=== PATIENT | female | born 1945 | race Caucasian/White ===

== ENCOUNTER → 2016-08-25 | Outpatient (CLI) | payer OTHER ==
[~2016-08-25] MED LIST: ATV5 PO; CALCTAB5 PO; CLRD24 PO; EZET10TA41 PO; GABA-113 PO; GLC500 PO; OXYC1TAB3 PO; PRLSR20 PO; RANI300T2 PO
[2016-08-25 10:43] LABS: BLOOD UREA NITROGEN 19 mg/dl (7-18); BUN/CREATININE RATIO 12.9 (10-20)
--- NOTE | 2016-08-25 11:18 | DIAGNOSTIC IMAGING REPORT ---
CT ABD WITH IV CONTRAST ONLY (CT) CT DOSE: 645.64 mGycm CLINICAL HISTORY: Adenopathy TECHNIQUE: The patient was scanned in a dynamic helical fashion during intravenous administration of 94 cc Optiray 320. COMPARISON STUDY: January 20, 2016 FINDINGS: There are mild basilar atelectatic changes. No focal hepatic masses are visualized. The liver is slightly nodular in appearance raises the possibility of cirrhosis. The gallbladder surgically absent. The spleen enhances somewhat heterogeneously. The spleen is within normal limits in size. There is fatty atrophy of the pancreas. There is stable mild left adrenal gland thickening. There is marked right renal atrophy. No left renal masses are visualized. As no hydronephrosis. There is no evidence of abdominal aortic dilatation. There are mildly prominent lymph nodes in the region of the efrain hepatis, and gastrohepatic ligament. There are also minimally prominent left-sided Para-aortic lymph nodes. These remain unchanged when compared the preceding study. IMPRESSION: 1. No significant change in the borderline enlarged upper abdominal lymph nodes 2. Marked right renal atrophy 3. Nodular serosal surface of the liver raising the possibility of cirrhosis 4. Fatty atrophy of the pancreas Electronically signed by: Lei Alejandra M.D. 08/25/2016 11:17 AM Dictated Date/Time: 08/25/2016 11:11 AM
== END | disposition home or self-care (01) ==
LOC: C.CTS 09:40
PROVIDERS: ATTEND Nurse Practitioner Family
DX: R59.9 Enlarged lymph nodes, unspecified (principal); Q60.0 Renal agenesis, unilateral; N26.1 Atrophy of kidney (terminal); K86.89 Other specified diseases of pancreas

== ENCOUNTER → 2017-12-06 | Outpatient (CLI) | payer OTHER ==
[~2017-12-06] MED LIST changes: +OXYC-90 PO; -OXYC1TAB3 PO
[2017-12-06 16:40] LABS: HEMOGLOBIN 12.7 g/dL (12.0-16.0); MEAN CORPUSCULAR HEMOGLOBIN 30.6 pg (25-34); MEAN CORPUSCULAR HGB CONC 32.6 g/dl (32-36); PLATELET COUNT 254 K/uL (130-400); RED CELL DISTRIBUTION WIDTH CV 13.3 % (11.5-14.5); RED CELL DISTRIBUTION WIDTH SD 45.8 fL (36.4-46.3); WHITE BLOOD COUNT 9.56 K/uL (4.8-10.8)
[2017-12-06 17:00] LABS: ALBUMIN 3.8 gm/dl (3.4-5.0); BLOOD UREA NITROGEN 26 mg/dl (7-18); CALCIUM 8.9 mg/dl (8.5-10.1); CARBON DIOXIDE 23 mmol/L (21-32); CREATININE 1.55 mg/dl (0.60-1.20); GLUCOSE 266 mg/dl (70-99); PHOSPHORUS 3.7 mg/dl (2.5-4.9); POTASSIUM 4.6 mmol/L (3.5-5.1); SODIUM 138 mmol/L (136-145)
== END | disposition home or self-care (01) ==
LOC: C.LAB1850 15:43
PROVIDERS: ATTEND Internal Medicine Nephrology
DX: N17.9 Acute kidney failure, unspecified (principal)

== ENCOUNTER 2018-08-12 16:06 | Inpatient (IN) ==
[2018-08-12] MEDS ORDERED: fentaNYL citrate 100 MCG/2 ML VIAL IV STA ×3 (16:20→19:05)
[2018-08-12 17:01] LABS: Basophils # (auto) 0.06 K/uL (0-0.2); Basophils % (auto) 0.5 %; Eosinophils # (auto) 0.28 K/uL (0-0.5); Eosinophils % (auto) 2.4 %; Hematocrit (blood only) 38.2 % (37-47); Hemoglobin 12.5 g/dL (12.0-16.0); Immature Granulocytes # (auto) 0.06 K/uL (0.00-0.02); Immature Granulocytes % (auto) 0.5 %; Lymphocytes # (auto) 1.73 K/uL (1.2-3.4); Mean Corpuscular Hgb Conc 32.7 g/dL (32-36); Mean Corpuscular Volume 94.6 fL (80-100); Mean Platelet Volume 10.9 fL (7.4-10.4); Monocytes # (auto) 0.85 K/uL (0.11-0.59); Monocytes % (auto) 7.3 %; Neutrophils # (auto) 8.59 K/uL (1.4-6.5); Neutrophils % (auto) 74.3 %; Platelet Count 266 K/uL (130-400); RDW Standard Deviation 45.3 fL (36.4-46.3); Red Blood Count 4.04 M/uL (4.2-5.4); White Blood Count 11.57 K/uL (4.8-10.8)
[2018-08-12 17:18] LABS: Appearance Urine Clear (Clear); Bacteria Urine Automated 4+ (Negative); Bilirubin Urine Negative (Negative); Blood Urine Negative (Negative); Color Urine Yellow; Glucose Urine UA 3+ (Negative); Ketones Urine Negative (Negative); Leukocyte Esterase Urine Negative (Negative); Nitrite Urine Positive (Negative); Protein Urine Negative (Negative); RBC Urine Automated 0-4 /hpf (0-4); Urobilinogen Urine Negative (Negative); pH Urine 6.5 (4.5-7.5)
[2018-08-12 17:22] LABS: Partial Thromboplastin Ratio 0.9; Partial Thromboplastin Time 24.3 Seconds (21.0-31.0); Prothrombin Time 9.8 Seconds (9.0-12.0)
[2018-08-12 17:51] LABS: BUN Creatinine Ratio 15.5 (10-20); Blood Urea Nitrogen 26 mg/dl (7-18); Calcium 9.5 mg/dl (8.5-10.1); Carbon Dioxide 21 mmol/L (21-32); Chloride 105 mmol/L (98-107); Creatinine Clr Calc Pharmacy 30.3 ml/min; Est GFR (African American) 34.6; Est GFR (Non-African American) 29.8; Glucose 405 mg/dl (70-99); Potassium 5.3 mmol/L (3.5-5.1); Sodium 136 mmol/L (136-145); Troponin I < 0.015 ng/ml (0-0.045)
--- NOTE | 2018-08-12 17:58 | CT Scan Report ---
CT head/brain wo con CLINICAL HISTORY: Head pain status post trauma COMPARISON STUDY: No previous studies for comparison. TECHNIQUE: Axial CT of the brain is performed from the vertex to the skull base. IV contrast was not administered for this examination. A dose lowering technique was utilized adhering to the principles of ALARA. CT DOSE: FINDINGS: No intra or extra-axial mass lesions are visualized. There is no CT evidence of acute cortical infarc tion. There is no evidence of midline shift. There is no acute hemorrhage. No calvarial fractures ar e visualized. There are patchy white matter hypodensities likely on a small vessel basis. There is no evidence of pathologic ventricular dilatation. There is no evidence of acute sinusitis. There is calvarial hyperostosis. IMPRESSION: No acute intracranial findings Electronically signed by: Lei Alejandra M.D. 08/12/2018 5:57 PM
--- NOTE | 2018-08-12 18:00 | CT Scan Report ---
CT OF THE CERVICAL SPINE CLINICAL HISTORY: Neck pain status post trauma COMPARISON STUDY: No previous studies for comparison. CT DOSE: 928.60 mGy.cm TECHNIQUE: CT scan of the cervical spine was performed from the skull base to the thoracic inlet. Marguerite ges are reviewed in the axial, sagittal, and coronal planes. IV contrast was not administered for thi s examination. A dose lowering technique was utilized adhering to the principles of ALARA. FINDINGS: The visualized portions of the lung apices reveal no evidence of pneumothorax. The prevertebral soft tissues are normal. No fractures or subluxations are visualized. There are multilevel degenerative changes, most pronounced at the C5-6 level with prominent posterior osteophytes IMPRESSION: No evidence of acute fracture or traumatic subluxation. Electronically signed by: Lei Alejandra M.D. 08/12/2018 5:58 PM
--- NOTE | 2018-08-12 18:42 | XRay Report ---
XR femur RT 2V routine, XR hip RT 2-3V w pelvis, XR knee RT 2V routine CLINICAL HISTORY: FALL. Right hip and knee pain. COMPARISON STUDY: None. FINDINGS: Comminuted and displaced intertrochanteric fracture within the proximal right femur. No dis location. Visualized pelvic bones are intact. The right hip fracture demonstrates up to 1 cm of anter ior displacement. No fracture or dislocation within the left hip or right knee. Of note, suboptimal p ositioning of the right knee. IMPRESSION: 1. Comminuted and displaced intertrochanteric fracture within the right hip. 2. No fractures within the pelvis or left hip. 3. No fractures within the right knee. Electronically signed by: Parker Yadav M.D. 08/12/2018 6:40 PM
--- NOTE | 2018-08-12 18:43 | XRay Report ---
XR chest 1V portable CLINICAL HISTORY: Chest pain status post trauma COMPARISON STUDY: No previous studies for comparison. FINDINGS: The cardiac and mediastinal contours are normal. There is no evidence of focal pulmonary co nsolidation. There is no evidence of failure. No pleural effusions are visualized.[ No pneumothorax i s visualized. IMPRESSION: No active disease in the chest. Electronically signed by: Lei Alejandra M.D. 08/12/2018 6:42 PM
[2018-08-12] MEDS ORDERED: INSULIN DETEMIR PER UNIT CHARGE SQ STA (20:19)
[2018-08-12] MEDS ORDERED: SODIUM CHLORIDE 0.9% 500 ML IV ONE ×2 (20:21→22:39)
[2018-08-12] MEDS ORDERED: CEFEPIME 2,000 MG in SYRINGE 7.5 ML IV STA (20:24)
[2018-08-12] MEDS ORDERED: TRAMADOL HCL 50 MG TABLET PO PRN (20:26)
--- NOTE | 2018-08-12 20:41 | History & Physical Report ---
Date of Service August 12, 2018 Assessment & Plan (1) Closed fracture of right hip: This is a 72-year-old female with a PMH of DM II, CKD III, GERD, mood disorder and DJD of cervical spine who presents after a fall this afternoon and was found to have a R hip fracture. -Mechanical fall earlier today -Hip/pelvis XR with evidence of a comminuted and displaced intertrochanteric fracture of the right hip -ED physician discussed with Dr. Horvath. Ortho surgery to see patient in AM -CXR without acute findings. EKG with normal sinus rhythm -Per Revised Cardiac Risk Index for pre-operative risk, class II risk -Pre-op abx, pain control. Further details per attending addendum -NPO after midnight (2) Diabetes mellitus, type II: Unknown a1c -Did not take insulin today and BSG is 405 -Hold oral agents -Basal/bolus insulin per protocol -BSG ACHS (Q6H while NPO) (3) UTI (urinary tract infection): Patient with dysuria, increased frequency of urination -UA with evidence of infection. Urine culture pending -Treat empirically (4) CKD (chronic kidney disease), stage III: Cr of 1.7 today, GFR of 29. Slightly below normal range of kidney function -Avoid nephrotoxic agents, IV hydration, continue monitoring with daily BMP (5) GERD (gastroesophageal reflux disease): Continue PPI and H2 andrey (6) Stress incontinence of urine: Continue Oxybutynin PCP: Falguni Dispo: Plan to admit to med/surg. Patient seen in collaboration with Dr. Villanueva. Please see addendum. History of Present Illness Chief Complaint: R hip fracture Primary Care Provider: Steffany Montes De Oca This is a 72-year-old female with a PMH of DM II, CKD III, GERD, mood disorder and DJD of cervical spine who presents after a fall this afternoon. Patient is visiting son in [place] was getting a drink of water at the refrigerator when she fell backwards, landing on her back. Patient hit her head, but no confusion or LOC. Was brought to the ED and found to have a comminuted and displaced intertrochanteric fracture of the right hip. Denies any numbness or paresthesias in distal right leg. Has family at bedside. Has undergone multiple surgeries in the past without issue. CT head without acute intracranial abnormalities chest x-ray. Chest x-ray without acute findings. EKG with normal sinus rhythm. Denies any fever, chills, lightheadedness, headache, chest pain, palpitations, shortness of breath, nausea, vomiting, abdominal pain, diarrhea or constipation. Is endorsing dysuria and frequent urination and has had UTIs in the past. Found to have BSG 405. Did not take morning Levemir dose. Allergies Allergy/AdvReac Type Severity Reaction Status Date / Time codeine AdvReac Mild nausea Verified 08/12/18 17:33 Home Medications Home Medications Medication Instructions Recorded Confirmed Type atorvastatin 10 mg PO HS 08/12/18 08/12/18 History gabapentin 300 mg PO TID 08/12/18 08/12/18 History glipizide 20 mg PO BID 08/12/18 08/12/18 History hydrocodone-acetaminophen 1 tab PO Q4 PRN MDD MAX 5 TAB/24 08/12/18 08/12/18 History HOURS. insulin detemir U-100 [Levemir 30 unit SUBCUT BID 08/12/18 08/12/18 History U-100 Insulin] lisinopril 5 mg PO DAILY 08/12/18 08/12/18 History loratadine 10 mg PO DAILY 08/12/18 08/12/18 History omeprazole 20 mg PO DAILY 08/12/18 08/12/18 History oxybutynin chloride 10 mg PO DAILY 08/12/18 08/12/18 History ranitidine HCl 300 mg PO HS 08/12/18 08/12/18 History sertraline 50 mg PO DAILY 08/12/18 08/12/18 History tizanidine 4 mg PO Q8H PRN 08/12/18 08/12/18 History Past Med/Surg History Medical History 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) CKD (chronic kidney disease), stage III (Chronic) Mood disorder (Chronic) Stress incontinence of urine (Chronic) GERD (gastroesophageal reflux disease) (Chronic) DM II (diabetes mellitus, type II), controlled (Chronic) Surgical History History of appendectomy (Resolved) History of cholecystectomy (Resolved) History of knee surgery (Resolved) Family History Other Cancer Coronary heart disease Social History Preferred Language: [place] Communication Ability: Effective Food Scientist Required: No Beliefs That Will Affect Care: None Current Living Situation: Alone Current Living Situation Comment: Lives in apartment; people come to help with getting bathed/dressed/clean current occupational status: retired Other Information That Helps Us Care for You: No Feels Safe at Home: Yes Safety Concerns: Feels Safe At This Time Smoking Status: Never smoker Hx Alcohol Use: No Hx Substance Use: No Review of Systems Review of Systems: At least ten systems reviewed and negative except as noted in the HPI. Physical Exam Physical Exam: General Appearance: WD/WN, no apparent distress, obese, anxious Head: normocephalic, atraumatic Eyes: normal inspection, PERRL, EOMI ENT: hearing grossly normal, pharynx normal (moist mucous membranes) Neck: supple, no JVD, no adenopathy Respiratory/Chest: lungs clear to auscultation. No wheezes, rales or rhonci. No respiratory distress or accessory muscle use Cardiovascular: regular rate, rhythm, no murmur, normal peripheral pulses Abdomen/GI: normal bowel sounds, soft, non-tender to palpation Extremities/Musculoskelatal: R hip very tender to palpation. Distal R leg with 5/5 strength and PT/DP pulses 2+ Neurologic/Psych: alert, normal mood/affect, oriented x 3 Skin: normal color, warm/dry Results & Data Vital Signs (Past 12 Hours) Vital Signs Temp Pulse Resp BP Pulse Ox 08/12/18 16:50 78 15 93 08/12/18 16:47 77 17 95 08/12/18 16:15 37.1 C 76 20 168/74 H 96 08/12/18 16:12 79 19 168/74 H 93 Laboratory Results Short CBC 08/12/18 Range/Units 16:33 WBC 11.57 H (4.8-10.8) K/uL Hgb 12.5 (12.0-16.0) g/dL Hct 38.2 (37-47) % Plt Count 266 (130-400) K/uL BMP 08/12/18 16:33 Sodium 136 Potassium 5.3 H Chloride 105 Carbon Dioxide 21 BUN 26 H Creatinine 1.70 H Glucose 405 H* Calcium 9.5 Cardiac Enzymes 08/12/18 Range/Units 16:33 Troponin I < 0.015 (0-0.045) ng/ml Urine 08/12/18 Range/Units 16:45 Urine Color Yellow Urine Appearance Clear (Clear) Urine pH 6.5 (4.5-7.5) Ur Specific [place] 1.020 (1.000-1.030) Urine Protein Negative (Negative) Urine Glucose (UA) 3+ H (Negative) Diagnostic Findings CT head: IMPRESSION: No acute intracranial findings CT cervical spine: IMPRESSION: No evidence of acute fracture or traumatic subluxation. CXR: IMPRESSION: No active disease in the chest. R Knee XR: IMPRESSION: 1. Comminuted and displaced intertrochanteric fracture within the right hip. 2. No fractures within the pelvis or left hip. 3. No fractures within the right knee. Femur XR: IMPRESSION: 1. Comminuted and displaced intertrochanteric fracture within the right hip. 2. No fractures within the pelvis or left hip. 3. No fractures within the right knee. Hip/pelvis XR: IMPRESSION: 1. Comminuted and displaced intertrochanteric fracture within the right hip. 2. No fractures within the pelvis or left hip. 3. No fractures within the right knee. ECG Rhythm: sinus rhythm Supervising Physician Co-Signing Physician Notes IM ATTENDING : Patient seen and examined. History obtained from patient and records. Preceding documentation by Ms. Yesi Manzo PA-C reviewed. FINAL ASSESSMENT AND PLAN as follows : Traumatic right hip fracture secondary to mechanical fall Hypertension, uncontrolled secondary to pain ARF on CRI, hyperkalemia History unilateral kidney atrophy as per records DM 2, insulin requiring, marked hyperglycemia, unknown baseline control Complicated UTI, history chronic interstitial cystitis/urge incontinence as per records, patient not septic Fibromyalgia as per records F Orthopedics consult RE right hip fracture (ER provider already in touch with Dr. Horvath. Surgery contemplated tomorrow AM pending medical evaluation.) Analgesia Norvasc in place of lisinopril in light of ARF on CRI, hyperkalemia Monitor creatinine and potassium response to IV hydration Pharmacy glycemic control consult, check hemoglobin A1c Urine cultures, IV Cefepime DVT prophylaxis. SCDs RE contemplated surgery in a.m. Recommend pharmacologic anticoagulation with heparin 5000 units subcutaneous every 8 hours once bleeding risk is deemed to be minimal and negligible pending Orthopedics evaluation. Full code Final medical evaluation pending repeat chemistry results in a.m. Patient's daughter requesting for updates from providers. Ms. Helga Ariza, contact #[phone]. (1) Closed fracture of right hip Encounter type: initial encounter Qualified Code(s): S72.001A - Fracture of unspecified part of neck of right femur, initial encounter for closed fracture
[2018-08-12 21:03] LABS: Magnesium 1.9 mg/dl (1.8-2.4)
[2018-08-12] MEDS ORDERED: AMLODIPINE BESYLATE 5 MG TAB PO STA (21:05)
[2018-08-12] MEDS ORDERED: CEFEPIME 2,000 MG/20 ML VIAL ONE (22:34)
[2018-08-12] MEDS ORDERED: TIZANIDINE HCL 4 MG TABLET PO PRN (22:55)
[2018-08-12] MEDS ORDERED: GLUCOSE 10 TABS/TUBE PO PRN (22:55)
[2018-08-12] MEDS ORDERED: BISACODYL 10 MG SUPP PR PRN (22:55)
[2018-08-12] MEDS ORDERED: GLUCAGON FOR INJ 1 MG VIAL SQ PRN (22:55)
[2018-08-12] MEDS ORDERED: CARBOHYDRATES FOR HYPOGLYCEMIA PO PRN (22:55)
[2018-08-12] MEDS ORDERED: NALOXONE HCL 0.4 MG/1 ML VIAL/CARP IV PRN (22:55)
[2018-08-12] MEDS ORDERED: PROMETHAZINE HCL 12.5 MG in SODIUM CHLORIDE 0.9% 50 ML IV PRN (22:55)
[2018-08-12] MEDS ORDERED: DEXTROSE 50% 50 ML SYRINGE IV PRN (22:55)
[2018-08-12] MEDS ORDERED: GLUCOSE 40% GEL 15 GM TUBE PO PRN (22:55)
[2018-08-12] MEDS ORDERED: ACETAMINOPHEN 325 MG TAB PO PRN (22:55)
[2018-08-12] MEDS ORDERED: PHARMACY GLYCEMIC MGMT CONSULT PRN (23:17)
[2018-08-12] MEDS ORDERED: INSULIN ASPART 100 UNITS/ML 3 ML PEN SC STA (23:23)
[2018-08-12] MEDS: SODIUM CHLORIDE 0.9% 1000ML 1,000 ML IV SCH (23:37)
[2018-08-12] MEDS: HYDROmorphone INJ 0.5 MG/0.5 ML SYR IV PRN (23:39)
--- NOTE | 2018-08-12 23:59 | Emergency Department Note ---
Entered by Luz Maria Desai acting as a scribe for History of Present Illness General Chief complaint: Hip Pain Source: patient and other (Nursing staff) History of Present Illness Onset (ago): hour(s) 2 Location: right (hip) Pain Consistency: + other (after a fall) Quality: + other (fall) Associated symptoms: + other (Positive shortening of right hip. Negative LOC, arm pain, left leg pain, numbness, right ankle pain. 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 She states she was trying to get a drink of water when she suddenly fell backwards. As per nursing staff, the patient has right hip pain and her right hip appears shortened. Pt denies any LOC. arm pain, left leg pain, numbness, right ankle pain. Pt does not take aspirin or plavix. She takes hydrocodone to manage her left hip pain. Home Medications Home Medications Medication Instructions Recorded Confirmed Type atorvastatin 10 mg PO HS 08/12/18 08/12/18 History gabapentin 300 mg PO TID 08/12/18 08/12/18 History glipizide 20 mg PO BID 08/12/18 08/12/18 History hydrocodone-acetaminophen 1 tab PO Q4 PRN MDD MAX 5 TAB/24 08/12/18 08/12/18 History HOURS. insulin detemir U-100 [Levemir 30 unit SUBCUT BID 08/12/18 08/12/18 History U-100 Insulin] lisinopril 5 mg PO DAILY 08/12/18 08/12/18 History loratadine 10 mg PO DAILY 08/12/18 08/12/18 History omeprazole 20 mg PO DAILY 08/12/18 08/12/18 History oxybutynin chloride 10 mg PO DAILY 08/12/18 08/12/18 History ranitidine HCl 300 mg PO HS 08/12/18 08/12/18 History sertraline 50 mg PO DAILY 08/12/18 08/12/18 History tizanidine 4 mg PO Q8H PRN 08/12/18 08/12/18 History Allergies Allergy/AdvReac Type Severity Reaction Status Date / Time codeine AdvReac Mild nausea Verified 08/12/18 17:33 Past Med/Surg History Medical History 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) CKD (chronic kidney disease), stage III (Chronic) Mood disorder (Chronic) Stress incontinence of urine (Chronic) GERD (gastroesophageal reflux disease) (Chronic) DM II (diabetes mellitus, type II), controlled (Chronic) Surgical History History of appendectomy (Resolved) History of cholecystectomy (Resolved) History of knee surgery (Resolved) Family History Other Cancer Coronary heart disease Social History Preferred Language: Irish Current Living Situation: Alone current occupational status: retired Feels Safe at Home: No Smoking Status: Never smoker Hx Alcohol Use: No Review of Systems See HPI for pertinent positives & negatives. and A total of 10 systems reviewed and were otherwise negative Physical Exam Vital Signs Vital Signs - 24 hr 08/12/18 16:12 08/12/18 16:15 08/12/18 16:47 Temperature 37.1 C Temperature Source Oral Sepsis Recent Fever Within 48 Hours No Sepsis New/Unexplained Change in Mental Status No Sepsis Action Taken by Nursing No Action Required Pulse Rate 79 76 77 Pulse Rate [Finger] Pulse Rate from SpO2 Sensor 80 78 Respiratory Rate 19 20 17 Respiratory Effort / Characteristics Non-Labored Spontaneous Blood Pressure 168/74 H 168/74 H Blood Pressure [Left Arm] Blood Pressure Mean 105 105 Blood Pressure Mean [Left Arm] Blood Pressure Position Lying Blood Pressure Position [Left Arm] Pulse Oximetry 93 96 95 Oxygen Delivery Method Room Air 08/12/18 16:50 08/12/18 17:00 08/12/18 17:10 Temperature Temperature Source Sepsis Recent Fever Within 48 Hours Sepsis New/Unexplained Change in Mental Status Sepsis Action Taken by Nursing Pulse Rate 78 76 82 Pulse Rate [Finger] Pulse Rate from SpO2 Sensor 78 80 82 Respiratory Rate 15 17 15 Respiratory Effort / Characteristics Blood Pressure Blood Pressure [Left Arm] Blood Pressure Mean Blood Pressure Mean [Left Arm] Blood Pressure Position Blood Pressure Position [Left Arm] Pulse Oximetry 93 94 96 Oxygen Delivery Method 08/12/18 17:20 08/12/18 17:57 08/12/18 18:00 Temperature Temperature Source Sepsis Recent Fever Within 48 Hours Sepsis New/Unexplained Change in Mental Status Sepsis Action Taken by Nursing Pulse Rate 78 86 76 Pulse Rate [Finger] Pulse Rate from SpO2 Sensor 79 Respiratory Rate 13 27 H 18 Respiratory Effort / Characteristics Blood Pressure Blood Pressure [Left Arm] Blood Pressure Mean Blood Pressure Mean [Left Arm] Blood Pressure Position Blood Pressure Position [Left Arm] Pulse Oximetry 95 Oxygen Delivery Method 08/12/18 18:25 08/12/18 18:30 08/12/18 18:40 Temperature Temperature Source Sepsis Recent Fever Within 48 Hours Sepsis New/Unexplained Change in Mental Status Sepsis Action Taken by Nursing Pulse Rate 75 77 79 Pulse Rate [Finger] Pulse Rate from SpO2 Sensor Respiratory Rate 19 18 17 Respiratory Effort / Characteristics Blood Pressure Blood Pressure [Left Arm] Blood Pressure Mean Blood Pressure Mean [Left Arm] Blood Pressure Position Blood Pressure Position [Left Arm] Pulse Oximetry Oxygen Delivery Method 08/12/18 18:50 08/12/18 19:00 08/12/18 19:10 Temperature Temperature Source Sepsis Recent Fever Within 48 Hours Sepsis New/Unexplained Change in Mental Status Sepsis Action Taken by Nursing Pulse Rate 78 78 77 Pulse Rate [Finger] Pulse Rate from SpO2 Sensor Respiratory Rate 15 15 11 L Respiratory Effort / Characteristics Blood Pressure Blood Pressure [Left Arm] Blood Pressure Mean Blood Pressure Mean [Left Arm] Blood Pressure Position Blood Pressure Position [Left Arm] Pulse Oximetry Oxygen Delivery Method 08/12/18 19:20 08/12/18 19:30 08/12/18 19:40 Temperature Temperature Source Sepsis Recent Fever Within 48 Hours Sepsis New/Unexplained Change in Mental Status Sepsis Action Taken by Nursing Pulse Rate 79 78 77 Pulse Rate [Finger] Pulse Rate from SpO2 Sensor 79 79 81 Respiratory Rate 19 13 15 Respiratory Effort / Characteristics Blood Pressure Blood Pressure [Left Arm] Blood Pressure Mean Blood Pressure Mean [Left Arm] Blood Pressure Position Blood Pressure Position [Left Arm] Pulse Oximetry 94 95 95 Oxygen Delivery Method 08/12/18 19:50 08/12/18 20:00 08/12/18 20:10 Temperature Temperature Source Sepsis Recent Fever Within 48 Hours Sepsis New/Unexplained Change in Mental Status Sepsis Action Taken by Nursing Pulse Rate 77 79 82 Pulse Rate [Finger] Pulse Rate from SpO2 Sensor 79 78 81 Respiratory Rate 13 23 17 Respiratory Effort / Characteristics Blood Pressure Blood Pressure [Left Arm] Blood Pressure Mean Blood Pressure Mean [Left Arm] Blood Pressure Position Blood Pressure Position [Left Arm] Pulse Oximetry 97 97 97 Oxygen Delivery Method 08/12/18 20:20 08/12/18 20:30 08/12/18 20:40 Temperature Temperature Source Sepsis Recent Fever Within 48 Hours Sepsis New/Unexplained Change in Mental Status Sepsis Action Taken by Nursing Pulse Rate 81 78 80 Pulse Rate [Finger] Pulse Rate from SpO2 Sensor 81 79 80 Respiratory Rate 17 18 19 Respiratory Effort / Characteristics Blood Pressure Blood Pressure [Left Arm] Blood Pressure Mean Blood Pressure Mean [Left Arm] Blood Pressure Position Blood Pressure Position [Left Arm] Pulse Oximetry 97 97 98 Oxygen Delivery Method 08/12/18 20:48 08/12/18 20:50 08/12/18 21:00 Temperature Temperature Source Sepsis Recent Fever Within 48 Hours Sepsis New/Unexplained Change in Mental Status Sepsis Action Taken by Nursing Pulse Rate 76 77 77 Pulse Rate [Finger] Pulse Rate from SpO2 Sensor 77 77 78 Respiratory Rate 15 22 19 Respiratory Effort / Characteristics Blood Pressure 159/82 H Blood Pressure [Left Arm] Blood Pressure Mean 107 Blood Pressure Mean [Left Arm] Blood Pressure Position Blood Pressure Position [Left Arm] Pulse Oximetry 97 98 95 Oxygen Delivery Method 08/12/18 21:01 08/12/18 21:10 08/12/18 21:20 Temperature Temperature Source Sepsis Recent Fever Within 48 Hours Sepsis New/Unexplained Change in Mental Status Sepsis Action Taken by Nursing Pulse Rate 77 82 80 Pulse Rate [Finger] Pulse Rate from SpO2 Sensor 80 81 80 Respiratory Rate 15 16 11 L Respiratory Effort / Characteristics Blood Pressure 176/73 H Blood Pressure [Left Arm] Blood Pressure Mean 107 Blood Pressure Mean [Left Arm] Blood Pressure Position Blood Pressure Position [Left Arm] Pulse Oximetry 97 97 97 Oxygen Delivery Method 08/12/18 21:30 08/12/18 21:31 08/12/18 21:40 Temperature Temperature Source Sepsis Recent Fever Within 48 Hours Sepsis New/Unexplained Change in Mental Status Sepsis Action Taken by Nursing Pulse Rate 75 78 83 Pulse Rate [Finger] Pulse Rate from SpO2 Sensor 75 77 Respiratory Rate 18 18 21 Respiratory Effort / Characteristics Blood Pressure 199/78 H Blood Pressure [Left Arm] Blood Pressure Mean 118 Blood Pressure Mean [Left Arm] Blood Pressure Position Blood Pressure Position [Left Arm] Pulse Oximetry 94 96 Oxygen Delivery Method 08/12/18 21:50 08/12/18 22:00 08/12/18 22:10 Temperature Temperature Source Sepsis Recent Fever Within 48 Hours Sepsis New/Unexplained Change in Mental Status Sepsis Action Taken by Nursing Pulse Rate 85 77 80 Pulse Rate [Finger] Pulse Rate from SpO2 Sensor Respiratory Rate 20 15 14 Respiratory Effort / Characteristics Blood Pressure Blood Pressure [Left Arm] Blood Pressure Mean Blood Pressure Mean [Left Arm] Blood Pressure Position Blood Pressure Position [Left Arm] Pulse Oximetry Oxygen Delivery Method 08/12/18 22:20 08/12/18 23:15 Temperature 37.1 C Temperature Source Oral Sepsis Recent Fever Within 48 Hours Sepsis New/Unexplained Change in Mental Status Sepsis Action Taken by Nursing Pulse Rate 72 Pulse Rate [Finger] 82 Pulse Rate from SpO2 Sensor Respiratory Rate 19 20 Respiratory Effort / Characteristics Blood Pressure Blood Pressure [Left Arm] 178/75 H Blood Pressure Mean Blood Pressure Mean [Left Arm] 109 Blood Pressure Position Blood Pressure Position [Left Arm] Lying Pulse Oximetry 94 Oxygen Delivery Method Room Air GENERAL: Awake, alert, uncomfortable-appearing HENT: Normocephalic, atraumatic. Oropharynx unremarkable. EYES: Normal conjunctiva. Sclera non-icteric. PERRL. NECK: Supple. No nuchal rigidity. Mild left neck tenderness RESPIRATORY: Clear to auscultation. No wheezes. Normal respiratory effort. CARDIAC: Normal rate. Normal rhythm. Extremities warm and well perfused. GI: Soft, non-distended. No tenderness to palpation. No rebound or guarding. RECTAL: Deferred. MUSCULOSKELETAL: Atraumatic. Chest examination reveals no tenderness. LOWER EXTREMITIES: RLE is shortened and externally rotated. 1+ DP pulse. Intact sensation on the right foot. Pain right thigh to right hip. Mild chronic pain of left knee. NEURO: Normal sensorium. No sensory or motor deficits noted. No facial droop. SKIN: Warm and dry. No rash or jaundice noted. Course 1611: The patient was evaluated in room B12, and a complete history and physical examination were performed. 6: I reviewed the patient's case with Aftab Husain. He recommends the patient be further evaluated. 0: I reviewed the patient's case with JOEL Andrew. Sharad Pollock will evaluate the patient for further management. Consultations Consultation #1: I reviewed the patient's case with Aftab Husain. He recommends the patient be further evaluated. Time: 19:16 Consultation #2: I reviewed the patient's case with JOEL Andrew. Sharad Pollock will evaluate the patient for further management. Time: 19:20 Administered Medications Hydromorphone HCl (Dilaudid) 0.5 mg IV Q3H PRN PRN Reason: Pain Stop: 08/26/18 20:25 Last Admin: 08/12/18 23:39 Dose: 0.5 mg Documented by: [id number] Cefepime HCl 2,000 mg/ Syringe 20 mls @ 1 mls/hr IV NOW STA Stop: 08/13/18 16:23 Last Admin: 08/12/18 22:37 Dose: 1 mls/hr Documented by: [id number] Sodium Chloride (Nss 1000ml) 1,000 mls @ 75 mls/hr IV .[id number] Stop: 09/11/18 21:59 Last Admin: 08/12/18 23:37 Dose: 75 mls/hr Documented by: [id number] Discontinued Medications Amlodipine Besylate (Norvasc) 2.5 mg PO NOW STA Stop: 08/12/18 21:06 Last Admin: 08/12/18 21:31 Dose: 2.5 mg Documented by: [id number] Fentanyl Citrate (Fentanyl Citrate) 100 mcg IV NOW STA Stop: 08/12/18 16:21 Last Admin: 08/12/18 16:32 Dose: 100 mcg Documented by: [id number] Fentanyl Citrate (Fentanyl Citrate) 100 mcg IV NOW STA Stop: 08/12/18 19:06 Last Admin: 08/12/18 19:26 Dose: Not Given Documented by: [id number] Fentanyl Citrate (Fentanyl Citrate) 100 mcg IV NOW STA Stop: 08/12/18 19:06 Last Admin: 08/12/18 19:27 Dose: 100 mcg Documented by: [id number] Sodium Chloride (Nss) 500 mls @ 500 mls/hr IV .Q1H ONE Stop: 08/12/18 21:20 Last Admin: 08/12/18 23:29 Dose: Not Given Documented by: [id number] Sodium Chloride (Nss) 500 mls @ 999 mls/hr IV .Q31M ONE Stop: 08/12/18 23:09 Last Infusion: 08/12/18 22:41 Dose: 0 mls/hr Documented by: [id number] Admin: 08/12/18 21:30 Dose: 999 mls/hr Documented by: [id number] Insulin Detemir (Levemir Per Unit) 30 units SQ NOW STA Stop: 08/12/18 20:20 Last Admin: 08/12/18 21:00 Dose: 30 units Documented by: [id number] Cosigned by: [id number] Medical Decision Making Differential Diagnosis Differential diagnosis: Etiologies such as fracture, dislocation, intra-abdominal, pneumothorax, intrathoracic , intracranial, neurologic, as well as other traumatic pathologies were entertained. Home Medications Current Medication List: was personally reviewed by me Laboratory Data Attestation: I reviewed the patient's lab results. Result diagrams: 08/12/18 16:33 08/12/18 16:33 Lab Results 08/12/18 08/12/18 08/12/18 Range/Units 16:33 16:33 16:33 WBC 11.57 H (4.8-10.8) K/uL RBC 4.04 L (4.2-5.4) M/uL Hgb 12.5 (12.0-16.0) g/dL Hct 38.2 (37-47) % MCV 94.6 (80-100) fL MCH 30.9 (25-34) pg MCHC 32.7 (32-36) g/dL RDW Std Deviation 45.3 (36.4-46.3) fL RDW Coeff of Robby 13.0 (11.5-14.5) % Plt Count 266 (130-400) K/uL MPV 10.9 H (7.4-10.4) fL Immature Gran % (Auto) 0.5 % Neut % (Auto) 74.3 % Lymph % (Auto) 15.0 % [place] % (Auto) 7.3 % Eos % (Auto) 2.4 % Baso % (Auto) 0.5 % Immature Gran # (Auto) 0.06 H (0.00-0.02) K/uL Neut # (Auto) 8.59 H (1.4-6.5) K/uL Lymph # (Auto) 1.73 (1.2-3.4) K/uL [place] # (Auto) 0.85 H (0.11-0.59) K/uL Eos # (Auto) 0.28 (0-0.5) K/uL Baso # (Auto) 0.06 (0-0.2) K/uL PT 9.8 (9.0-12.0) Seconds INR 1.0 (0.9-1.1) APTT 24.3 (21.0-31.0) Seconds PTT Ratio 0.9 Sodium 136 (136-145) mmol/L Potassium 5.3 H (3.5-5.1) mmol/L Chloride 105 (98-107) mmol/L Carbon Dioxide 21 (21-32) mmol/L Anion Gap 9.0 (3-11) BUN 26 H (7-18) mg/dl Creatinine 1.70 H (0.6-1.2) mg/dl Est Cr Clr Drug Dosing 30.3 ml/min Est GFR ( Amer) 34.6 Est GFR (Non-Af Amer) 29.8 BUN/Creatinine Ratio 15.5 (10-20) Glucose 405 H* (70-99) mg/dl POC Glucose (70-99) Calcium 9.5 (8.5-10.1) mg/dl Magnesium 1.9 (1.8-2.4) mg/dl Troponin I < 0.015 (0-0.045) ng/ml Beta-Hydroxybutyric Acd (0.2-2.81) mg/dl TSH 4.750 H (0.300-4.500) uIu/ml Urine Color Urine Appearance (Clear) Urine pH (4.5-7.5) Ur Specific [place] (1.000-1.030) Urine Protein (Negative) Urine Glucose (UA) (Negative) Urine Ketones (Negative) Urine Blood (Negative) Urine Nitrite (Negative) Urine Bilirubin (Negative) Urine Urobilinogen (Negative) Ur Leukocyte Esterase (Negative) Urine WBC (Auto) (0-5) /hpf Urine RBC (Auto) (0-4) /hpf U Hyaline Cast (Auto) (0-5) /lpf U Epithel Cells (Auto) (0-5) /lpf Urine Bacteria (Auto) (Negative) Blood Type Antibody Screen 08/12/18 08/12/18 08/12/18 Range/Units 16:33 16:45 17:23 WBC (4.8-10.8) K/uL RBC (4.2-5.4) M/uL Hgb (12.0-16.0) g/dL Hct (37-47) % MCV (80-100) fL MCH (25-34) pg MCHC (32-36) g/dL RDW Std Deviation (36.4-46.3) fL RDW Coeff of Robby (11.5-14.5) % Plt Count (130-400) K/uL MPV (7.4-10.4) fL Immature Gran % (Auto) % Neut % (Auto) % Lymph % (Auto) % [place] % (Auto) % Eos % (Auto) % Baso % (Auto) % Immature Gran # (Auto) (0.00-0.02) K/uL Neut # (Auto) (1.4-6.5) K/uL Lymph # (Auto) (1.2-3.4) K/uL [place] # (Auto) (0.11-0.59) K/uL Eos # (Auto) (0-0.5) K/uL Baso # (Auto) (0-0.2) K/uL PT (9.0-12.0) Seconds INR (0.9-1.1) APTT (21.0-31.0) Seconds PTT Ratio Sodium (136-145) mmol/L Potassium (3.5-5.1) mmol/L Chloride (98-107) mmol/L Carbon Dioxide (21-32) mmol/L Anion Gap (3-11) BUN (7-18) mg/dl Creatinine (0.6-1.2) mg/dl Est Cr Clr Drug Dosing ml/min Est GFR ( Amer) Est GFR (Non-Af Amer) BUN/Creatinine Ratio (10-20) Glucose (70-99) mg/dl POC Glucose 358 H* (70-99) Calcium (8.5-10.1) mg/dl Magnesium (1.8-2.4) mg/dl Troponin I (0-0.045) ng/ml Beta-Hydroxybutyric Acd (0.2-2.81) mg/dl TSH (0.300-4.500) uIu/ml Urine Color Yellow Urine Appearance Clear (Clear) Urine pH 6.5 (4.5-7.5) Ur Specific [place] 1.020 (1.000-1.030) Urine Protein Negative (Negative) Urine Glucose (UA) 3+ H (Negative) Urine Ketones Negative (Negative) Urine Blood Negative (Negative) Urine Nitrite Positive H (Negative) Urine Bilirubin Negative (Negative) Urine Urobilinogen Negative (Negative) Ur Leukocyte Esterase Negative (Negative) Urine WBC (Auto) 1-5 (0-5) /hpf Urine RBC (Auto) 0-4 (0-4) /hpf U Hyaline Cast (Auto) 1-5 (0-5) /lpf U Epithel Cells (Auto) 5-10 H (0-5) /lpf Urine Bacteria (Auto) 4+ H (Negative) Blood Type A Positive Antibody Screen NEGATIVE 08/12/18 Range/Units 23:34 WBC (4.8-10.8) K/uL RBC (4.2-5.4) M/uL Hgb (12.0-16.0) g/dL Hct (37-47) % MCV (80-100) fL MCH (25-34) pg MCHC (32-36) g/dL RDW Std Deviation (36.4-46.3) fL RDW Coeff of Robby (11.5-14.5) % Plt Count (130-400) K/uL MPV (7.4-10.4) fL Immature Gran % (Auto) % Neut % (Auto) % Lymph % (Auto) % [place] % (Auto) % Eos % (Auto) % Baso % (Auto) % Immature Gran # (Auto) (0.00-0.02) K/uL Neut # (Auto) (1.4-6.5) K/uL Lymph # (Auto) (1.2-3.4) K/uL [place] # (Auto) (0.11-0.59) K/uL Eos # (Auto) (0-0.5) K/uL Baso # (Auto) (0-0.2) K/uL PT (9.0-12.0) Seconds INR (0.9-1.1) APTT (21.0-31.0) Seconds PTT Ratio Sodium (136-145) mmol/L Potassium (3.5-5.1) mmol/L Chloride (98-107) mmol/L Carbon Dioxide (21-32) mmol/L Anion Gap (3-11) BUN (7-18) mg/dl Creatinine (0.6-1.2) mg/dl Est Cr Clr Drug Dosing ml/min Est GFR ( Amer) Est GFR (Non-Af Amer) BUN/Creatinine Ratio (10-20) Glucose (70-99) mg/dl POC Glucose 158 H (70-99) Calcium (8.5-10.1) mg/dl Magnesium (1.8-2.4) mg/dl Troponin I (0-0.045) ng/ml Beta-Hydroxybutyric Acd (0.2-2.81) mg/dl TSH (0.300-4.500) uIu/ml Urine Color Urine Appearance (Clear) Urine pH (4.5-7.5) Ur Specific [place] (1.000-1.030) Urine Protein (Negative) Urine Glucose (UA) (Negative) Urine Ketones (Negative) Urine Blood (Negative) Urine Nitrite (Negative) Urine Bilirubin (Negative) Urine Urobilinogen (Negative) Ur Leukocyte Esterase (Negative) Urine WBC (Auto) (0-5) /hpf Urine RBC (Auto) (0-4) /hpf U Hyaline Cast (Auto) (0-5) /lpf U Epithel Cells (Auto) (0-5) /lpf Urine Bacteria (Auto) (Negative) Blood Type Antibody Screen Imaging Data Radiologist's Impression: Radiology results as stated below per my review and the radiologist's interpretation: CT OF THE CERVICAL SPINE CLINICAL HISTORY: Neck pain status post trauma COMPARISON STUDY: No previous studies for comparison. CT DOSE: 928.60 mGy.cm TECHNIQUE: CT scan of the cervical spine was performed from the skull base to the thoracic inlet. Images are reviewed in the axial, sagittal, and coronal planes. IV contrast was not administered for this examination. A dose lowering technique was utilized adhering to the principles of ALARA. FINDINGS: The visualized portions of the lung apices reveal no evidence of pneumothorax. The prevertebral soft tissues are normal. No fractures or subluxations are visualized. There are multilevel degenerative changes, most pronounced at the C5-6 level with prominent posterior osteophytes IMPRESSION: No evidence of acute fracture or traumatic subluxation. Electronically signed by: Lei Alejandra M.D. 08/12/2018 5:58 PM XR chest 1V portable CLINICAL HISTORY: Chest pain status post trauma COMPARISON STUDY: No previous studies for comparison. FINDINGS: The cardiac and mediastinal contours are normal. There is no evidence of focal pulmonary consolidation. There is no evidence of failure. No pleural effusions are visualized.[ No pneumothorax is visualized. IMPRESSION: No active disease in the chest. Electronically signed by: Lei Alejandra M.D. 08/12/2018 6:[address] head/brain wo con CLINICAL HISTORY: Head pain status post trauma COMPARISON STUDY: No previous studies for comparison. TECHNIQUE: Axial CT of the brain is performed from the vertex to the skull base. IV contrast was not administered for this examination. A dose lowering technique was utilized adhering to the principles of ALARA. CT DOSE: FINDINGS: No intra or extra-axial mass lesions are visualized. There is no CT evidence of acute cortical infarction. There is no evidence of midline shift. There is no a cute hemorrhage. No calvarial fractures are visualized. There are patchy white matter hypodensities likely on a small vessel basis. There is no evidence of pathologic ventricular dilatation. There is no evidence of acute sinusitis. There is calvarial hyperostosis. IMPRESSION: No acute intracranial findings Electronically signed by: Lei Alejandra M.D. 08/12/2018 5:57 PM XR femur RT 2V routine, XR hip RT 2-3V w pelvis, XR knee RT 2V routine CLINICAL HISTORY: FALL. Right hip and knee pain. COMPARISON STUDY: None. FINDINGS: Comminuted and displaced intertrochanteric fracture within the proximal right femur. No dislocation. Visualized pelvic bones are intact. The right hip fracture demonstrates up to 1 cm of anterior displacement. No fracture or dislocation within the left hip or right knee. Of note, suboptimal positioning of the right knee. IMPRESSION: 1. Comminuted and displaced intertrochanteric fracture within the right hip. 2. No fractures within the pelvis or left hip. 3. No fractures within the right knee. Electronically signed by: Parker Yadav M.D. 08/12/2018 6:40 PM ECG Data Attestation: I personally reviewed and interpreted this ECG as follows: Indication: other (fall) Rate (beats per minute): 76 Rhythm: normal sinus Findings: + other (normal intervals); no PVC, no ST depression and no ST elevation Blood Pressure Blood Pressure Findings: Elevated blood pressure Blood Pressure Disposition: further management by hospitalist ARIANA Goncalves Patient is a 72-year-old female with a history of diabetes presenting today with complaint of hip pain via EMS. 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 Visiting her son and at the refrigerator just fell backwards striking her head with immediate right hip pain. Pain in the right hip through the right thigh with some slight knee tenderness. X-rays of the knee femur and hip and pelvis were obtained. Chest x-ray obtained along with EKG. Basic laboratory studies were ordered. Not a high risk anticoagulants but given that she struck her head CT the head and cerv ical spine were completed. Negative. Some mild left-sided (not midline) neck pain this patient states chronic. No neurological deficits. No evidence of other significant trauma. Neurologically intact in the right lower extremity. Concern again for hip fracture. Patient denies any loss of consciousness or syncopal symptoms states she just fell backward when this happened. X-ray does show a right intracranial hip fracture. Patient given additional pain medicine as she was uncomfortable slightly confused after this. We will continue to monitor. CT imaging is reassuring. Discussed with orthopedics and the hospitalist for admission given the broken hip noted. Patient updated. Impression & Plan Closed fracture of right hip Discharge Plan Visit Data *Final* Discharge Date/Time: 08/12/18 22:35 Chief Complaint: Hip Pain ED Provider: Jorge Arredondo Discharge Problem: Closed fracture of right hip Patient Disposition: Admitted As Inpatient Discharge Instructions Interventions: ED Discharge Assessment Last Done: 08/12/18 22:35 Discharge Problem: Closed fracture of right hip Qualifiers: Encounter type: initial encounter Qualified Code(s): S72.001A - Fracture of unspecified part of neck of right femur, initial encounter for closed fracture The peymaniblynnette's documentation has been prepared under my direction and personally reviewed by me in its entirety. I confirm that the note above accurately r eflects all work, treatment, procedures, and medical decision making performed by me.
[2018-08-13] MEDS ORDERED: LORazepam 0.5 MG TAB PO STA (01:28)
[2018-08-13] MEDS: HYDROmorphone INJ 0.5 MG/0.5 ML SYR IV PRN (03:43)
[2018-08-13 05:34] LABS: Basophils # (auto) 0.02 K/uL (0-0.2); Basophils % (auto) 0.2 %; Eosinophils # (auto) 0.06 K/uL (0-0.5); Eosinophils % (auto) 0.5 %; Hematocrit (blood only) 35.6 % (37-47); Hemoglobin 11.8 g/dL (12.0-16.0); Immature Granulocytes # (auto) 0.04 K/uL (0.00-0.02); Immature Granulocytes % (auto) 0.3 %; Lymphocytes # (auto) 1.99 K/uL (1.2-3.4); Lymphocytes % (auto) 15.5 %; Mean Corpuscular Hgb Conc 33.1 g/dL (32-36); Mean Platelet Volume 10.6 fL (7.4-10.4); Monocytes # (auto) 1.06 K/uL (0.11-0.59); Monocytes % (auto) 8.3 %; Neutrophils # (auto) 9.67 K/uL (1.4-6.5); Neutrophils % (auto) 75.2 %; Platelet Count 268 K/uL (130-400); RDW Coefficient of Variation 13.3 % (11.5-14.5); Red Blood Count 3.83 M/uL (4.2-5.4); White Blood Count 12.84 K/uL (4.8-10.8)
[2018-08-13 05:46] LABS: BUN Creatinine Ratio 14.5 (10-20); Calcium 8.6 mg/dl (8.5-10.1); Creatinine Clr Calc Pharmacy 34.7 ml/min; Est GFR (African American) 41.2; Est GFR (Non-African American) 35.5
[2018-08-13] MEDS ORDERED: INSULIN ASPART 100 UNITS/ML 3 ML PEN SC SCH ×4 (06:00→16:00)
[2018-08-13] MEDS ORDERED: PANTOprazole 40 MG TAB PO SCH ×2 (06:45→09:00)
[2018-08-13] MEDS ORDERED: METOCLOPRAMIDE HCL INJ 5 MG/ML 2 ML VIAL IV PRN (06:54)
[2018-08-13] MEDS ORDERED: HYDROmorphone INJ 0.5 MG/0.5 ML SYR IV PRN (06:55)
[2018-08-13] MEDS ORDERED: fentaNYL citrate 100 MCG/2 ML VIAL ONE ×3 (07:13→14:53)
[2018-08-13] MEDS ORDERED: PROPOFOL IV EMULSION 10 MG/ML 20 ML VIAL IV ONE (07:13)
[2018-08-13] MEDS ORDERED: MIDAZOLAM HCL 1 MG/ML 2ML VIAL ONE (07:13)
[2018-08-13] MEDS ORDERED: BUPIVACAINE/EPINEPHRINE 0.5% MPF 1:200,000 30 ML VIAL ONE (07:21)
--- NOTE | 2018-08-13 07:32 | Orthopedic Consultation ---
Date of Consultation August 13, 2018 Assessment & Plan (1) Closed fracture of right hip: X-rays demonstrate a reversal briefly inotrope fracture with some displacement of the lesser trochanter. Given the nature of the injury and displacement I recommended open reduction internal fixation with a trochanteric fixation nail. Risks, benefits, alternatives to the surgery were discussed with patient and her family and they wish to proceed. History of Present Illness Attending Physician: Juventino Paniagua MD History of Present Illness The patient is a 72-year-old female sustained a fall onto the right hip. X-rays of his very comminuted right intertrochanteric fracture. She denies pain in other regions. Denies any radicular symptoms. Denies any neurologic symptoms. Denies previous trauma to the hip. Allergies Allergy/AdvReac Type Severity Reaction Status Date / Time codeine AdvReac Mild nausea Verified 08/12/18 17:33 Home Medications Home Medications Medication Instructions Recorded Confirmed Type atorvastatin 10 mg PO HS 08/12/18 08/12/18 History gabapentin 300 mg PO TID 08/12/18 08/12/18 History glipizide 20 mg PO BID 08/12/18 08/12/18 History hydrocodone-acetaminophen 1 tab PO Q4 PRN MDD MAX 5 TAB/24 08/12/18 08/12/18 History HOURS. insulin detemir U-100 [Levemir 30 unit SUBCUT BID 08/12/18 08/12/18 History U-100 Insulin] lisinopril 5 mg PO DAILY 08/12/18 08/12/18 History loratadine 10 mg PO DAILY 08/12/18 08/12/18 History omeprazole 20 mg PO DAILY 08/12/18 08/12/18 History oxybutynin chloride 10 mg PO DAILY 08/12/18 08/12/18 History ranitidine HCl 300 mg PO HS 08/12/18 08/12/18 History sertraline 50 mg PO DAILY 08/12/18 08/12/18 History tizanidine 4 mg PO Q8H PRN 08/12/18 08/12/18 History Patient History Medical History 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) CKD (chronic kidney disease), stage III (Chronic) Mood disorder (Chronic) Stress incontinence of urine (Chronic) GERD (gastroesophageal reflux disease) (Chronic) DM II (diabetes mellitus, type II), controlled (Chronic) Surgical History History of appendectomy (Resolved) History of cholecystectomy (Resolved) History of knee surgery (Resolved) Family History Other Cancer Coronary heart disease Social History Preferred Language: Brazilian Communication Ability: Effective Telesales Advisor Required: No Beliefs That Will Affect Care: None Current Living Situation: Alone Current Living Situation Comment: Lives in apartment; people come to help with getting bathed/dressed/clean current occupational status: retired Other Information That Helps Us Care for You: No Feels Safe at Home: Yes Safety Concerns: Feels Safe At This Time Smoking Status: Never smoker Hx Alcohol Use: No Hx Substance Use: No Physical Exam Constitutional: WD/WN, vitals as above Eyes: PERRL, conjunctivae normal, anicteric sclerae Neck: normal visual inspection Cardiovascular: Extremities: normal capillary refill Musculoskeletal: Right lower extremity: Light touch sensation and motor function in the foot is intact patient is able to dorsiflex as well as plantarflex the foot and toes without any difficulty. The limb is shortened and externally rotated. Skin is intact. Examination contralateral limb is unremarkable Results & Data Vital Signs (Past 12 Hours) Vital Signs Temp Pulse Pulse Pulse Resp BP BP 08/13/18 07:11 37.3 C 81 16 152/81 H 08/13/18 00:18 83 138/84 08/12/18 23:15 37.1 C 82 20 178/75 H 08/12/18 22:20 72 19 08/12/18 22:10 80 14 08/12/18 22:00 77 15 08/12/18 21:50 85 20 08/12/18 21:40 83 21 08/12/18 21:31 78 18 199/78 H 08/12/18 21:30 75 18 08/12/18 21:20 80 11 L 08/12/18 21:10 82 16 08/12/18 21:01 77 15 176/73 H 08/12/18 21:00 77 19 08/12/18 20:50 77 22 08/12/18 20:48 76 15 159/82 H 08/12/18 20:40 80 19 08/12/18 20:30 78 18 08/12/18 20:20 81 17 08/12/18 20:10 82 17 08/12/18 20:00 79 23 08/12/18 19:50 77 13 08/12/18 19:40 77 15 08/12/18 19:30 78 13 Pulse Ox 08/13/18 07:11 91 08/13/18 00:18 08/12/18 23:15 94 08/12/18 22:20 08/12/18 22:10 08/12/18 22:00 08/12/18 21:50 08/12/18 21:40 08/12/18 21:31 96 08/12/18 21:30 94 08/12/18 21:20 97 08/12/18 21:10 97 08/12/18 21:01 97 08/12/18 21:00 95 08/12/18 20:50 98 08/12/18 20:48 97 08/12/18 20:40 98 08/12/18 20:30 97 08/12/18 20:20 97 08/12/18 20:10 97 08/12/18 20:00 97 08/12/18 19:50 97 08/12/18 19:40 95 08/12/18 19:30 95 (1) Closed fracture of right hip Encounter type: initial encounter Qualified Code(s): S72.001A - Fracture of unspecified part of neck of right femur, initial encounter for closed fracture
--- NOTE | 2018-08-13 07:32 | History & Physical Bridge Note ---
Date of Service August 13, 2018 History & Physical Bridge Note I have examined the patient, reviewed the History & Physical and in the interval since the performance of the History & Physical I have noted the following changes of clinical significance: no changes noted
--- NOTE | 2018-08-13 07:32 | Anesthesiology Consultation ---
Date of Service August 13, 2018 Assessment & Plan Chart Review Chart Review: Acceptable Risk for Surgery and Patient NOT seen in Pre Admission Testing NPO Date Last Intake of Fluids: 08/12/18 Time Last Intake of Fluids: 23:59 Date Last Intake of Solids: 08/12/18 Time Last Intake of Solids: 23:59 History Surgery Operation Date: 08/13/18 07:30 Proposed Procedures p Intramedullary Eddie Femur(Right) - Fco Horvath MD Height/Weight Height: 5 ft 1 in Weight: 84.8 kg Allergies Allergy/AdvReac Type Severity Reaction Status Date / Time codeine AdvReac Mild nausea Verified 08/12/18 17:33 Medications Home Medications Medication Instructions Recorded Confirmed Last Taken atorvastatin 10 mg PO HS 08/12/18 08/12/18 08/11/18 gabapentin 300 mg PO TID 08/12/18 08/12/18 08/11/18 glipizide 20 mg PO BID 08/12/18 08/12/18 08/11/18 hydrocodone-acetaminophen 1 tab PO Q4 PRN MDD MAX 5 TAB/24 08/12/18 08/12/18 Unknown HOURS. insulin detemir U-100 [Levemir 30 unit SUBCUT BID 08/12/18 08/12/18 08/11/18 U-100 Insulin] lisinopril 5 mg PO DAILY 08/12/18 08/12/18 08/11/18 loratadine 10 mg PO DAILY 08/12/18 08/12/18 08/11/18 omeprazole 20 mg PO DAILY 08/12/18 08/12/18 08/11/18 oxybutynin chloride 10 mg PO DAILY 08/12/18 08/12/18 Unknown ranitidine HCl 300 mg PO HS 08/12/18 08/12/18 08/11/18 sertraline 50 mg PO DAILY 08/12/18 08/12/18 08/11/18 tizanidine 4 mg PO Q8H PRN 08/12/18 08/12/18 Unknown Active Medications Generic Name Dose Route Start Last Admin Trade Name Freq PRN Reason Stop Dose Admin Cefepime HCl 2,000 mg/ Syringe 20 mls @ 1 mls/hr 08/12/18 20:24 08/12/18 22:37 IV 08/13/18 16:23 1 mls/hr NOW STA Administration Sodium Chloride 1,000 mls @ 75 mls/hr 08/12/18 22:00 08/12/18 23:37 Nss 1000ml IV 09/11/18 21:59 75 mls/hr .[id number] Administration Promethazine HCl 12.5 mg/ 50.5 mls @ 202 mls/hr 08/12/18 22:55 08/13/18 05:25 Sodium Chloride IV 09/11/18 22:54 Infused Q6H PRN Infusion Nausea And Vomiting Past Medical History Medical History 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) CKD (chronic kidney disease), stage III (Chronic) Mood disorder (Chronic) Stress incontinence of urine (Chronic) GERD (gastroesophageal reflux disease) (Chronic) DM II (diabetes mellitus, type II), controlled (Chronic) Past Family History Family History Other Cancer Coronary heart disease Past Surgical History Surgical History History of appendectomy (Resolved) History of cholecystectomy (Resolved) History of knee surgery (Resolved) Social History Smoking Status: Never smoker Hx Alcohol Use: No Hx Substance Use: No substance use type: does not use Physical Exam Vital Signs Last Vital Signs Temp 37.3 C 08/13/18 07:11 Pulse 81 08/13/18 07:11 Resp 16 08/13/18 07:11 BP 152/81 H 08/13/18 07:11 Pulse Ox 91 08/13/18 07:11 Testing Electrocardiogram Date: 08/12/18 Normal sinus rhythm Normal ECG When compared with ECG of 28-JUN-2003 09:45, No significant change was found Confirmed by VALERIA LANE ([id number]) on 08/12/2018 5:52:40 PM Chest X-Ray Date: 08/12/18 Findings: + NAD Laboratory Results 08/13/18 05:14 08/13/18 05:14 Blood Type A Positive 08/12/18 16:33 Antibody Screen NEGATIVE 08/12/18 16:33 PT 9.8 Seconds (9.0-12.0) 08/12/18 16:33 INR 1.0 (0.9-1.1) 08/12/18 16:33 APTT 24.3 Seconds (21.0-31.0) 08/12/18 16:33 Urine Color Yellow 08/12/18 16:45 Urine Appearance Clear (Clear) 08/12/18 16:45 Urine pH 6.5 (4.5-7.5) 08/12/18 16:45 Ur Specific [place] 1.020 (1.000-1.030) 08/12/18 16:45 Urine Protein Negative (Negative) 08/12/18 16:45 Urine Glucose (UA) 3+ (Negative) H 08/12/18 16:45 Urine Ketones Negative (Negative) 08/12/18 16:45 Urine Nitrite Positive (Negative) H 08/12/18 16:45 Ur Leukocyte Esterase Negative (Negative) 08/12/18 16:45 Urine WBC (Auto) 1-5 /hpf (0-5) 08/12/18 16:45 Urine RBC (Auto) 0-4 /hpf (0-4) 08/12/18 16:45 U Hyaline Cast (Auto) 1-5 /lpf (0-5) 08/12/18 16:45 U Epithel Cells (Auto) 5-10 /lpf (0-5) H 08/12/18 16:45 Urine Bacteria (Auto) 4+ (Negative) H 08/12/18 16:45 08/13/18 08/12/18 05:58 23:34 POC Glucose 255 H 158 H
[2018-08-13] MEDS ORDERED: CEFAZOLIN 2000MG 2,000 MG/15 ML SYR IV SCH (07:33)
[2018-08-13] MEDS ORDERED: NovoLIN-R INSULIN PER UNIT CHARGE IV STA (07:35)
[2018-08-13] MEDS ORDERED: CEFAZOLIN 2,000 MG/15 ML IV PUSH IV ONE (07:50)
[2018-08-13 08:24] LABS: Estimated Average Glucose 237 mg/dl; Hemoglobin A1C 9.9 % (4.5-5.6)
[2018-08-13] MEDS: LORATADINE 10 MG TAB PO SCH (08:31)
[2018-08-13] MEDS: SERTRALINE HCL 50 MG TABLET PO SCH (08:32)
[2018-08-13] MEDS: GABAPENTIN 300 MG CAP PO SCH ×2 (08:32→14:30)
[2018-08-13] MEDS: OXYBUTYNIN CHLORIDE XL 5 MG TABCR PO SCH (08:32)
[2018-08-13] MEDS ORDERED: CEFEPIME CONSULT ACTIVE PRN (09:00)
--- NOTE | 2018-08-13 09:54 | Orthopedic Progress Note ---
Date of Service August 13, 2018 Assessment & Plan (1) Closed fracture of right hip: Preoperative evaluation by the anesthesiologist revealed a significant systolic murmur that was initially not appreciated on her entrance evaluation. She is being sent for echocardiogram and cardiac evaluation. The surgery is on hold until further medical clearance we will either plan for surgery later this afternoon if she is medically cleared otherwise tomorrow. Results & Data Vital Signs (Past 12 Hours) Vital Signs Temp Pulse Pulse Pulse Pulse Resp BP 08/13/18 08:35 37.2 C 77 18 138/79 08/13/18 07:11 37.3 C 81 16 152/81 H 08/13/18 00:18 83 138/84 08/12/18 23:15 37.1 C 82 20 178/75 H 08/12/18 22:20 72 19 08/12/18 22:10 80 14 08/12/18 22:00 77 15 Pulse Ox 08/13/18 08:35 94 08/13/18 07:11 91 08/13/18 00:18 08/12/18 23:15 94 08/12/18 22:20 08/12/18 22:10 08/12/18 22:00 (1) Closed fracture of right hip Encounter type: initial encounter Qualified Code(s): S72.001A - Fracture of unspecified part of neck of right femur, initial encounter for closed fracture
[2018-08-13] MEDS ORDERED: CEFEPIME 2,000 MG in SYRINGE 7.5 ML IV SCH (10:00)
[2018-08-13] MEDS: HYDROCODONE/ACETAMINOPHEN 10/325 TAB PO PRN ×3 (10:09→22:18)
[2018-08-13] MEDS ORDERED: ONDANSETRON INJ 2 MG/ML 2 ML VIAL ONE ×2 (13:41→15:07)
[2018-08-13] MEDS ORDERED: SUCCINYLCHOLINE CHLORIDE 20 MG/ML 10 ML VIAL ONE (13:41)
[2018-08-13] MEDS ORDERED: ROCURONIUM BROMIDE 10 MG/ML 5 ML VIAL ONE (13:41)
[2018-08-13] MEDS ORDERED: HYDROmorphone INJ 2 MG/ML SYR/VIAL ONE (14:15)
--- NOTE | 2018-08-13 14:33 | Fluoroscopy Report ---
FL hip RT 2-3V CLINICAL HISTORY: RIGHT TROCH NAIL right hip fracture COMPARISON STUDY: 08/12/2018 FLUOROSCOPY TIME: 3 minutes and 8 seconds. NUMBER OF FLUOROSCOPIC IMAGES: 4 FINDINGS: 4 intraoperative fluoroscopic spot films demonstrate internal fixation of an intertrochante priti right hip fracture with a intratrochanteric nail and interlocking intramedullary noris. IMPRESSION: Fluoroscopic spot images demonstrating internal fixation of an intratrochanteric right h ip fracture Electronically signed by: Lei Alejandra M.D. 08/13/2018 2:31 PM
[2018-08-13] MEDS ORDERED: ACETAMINOPHEN 325 MG TAB PO PRN (14:39)
[2018-08-13] MEDS ORDERED: NALOXONE HCL 0.4 MG/1 ML VIAL/CARP IV PRN (14:39)
--- NOTE | 2018-08-13 14:39 | Operative Report ---
Post Operative Report Pre & Post Diagnosis Operation Date: 08/13/18 07:30 Pre-Op Diagnosis: Right Hip Fracture Post-Op Diagnosis: Right Hip Fracture Procedure Operation Date: 08/13/18 07:30 Actual Procedures p open reduction internal fixation of right intertrochanteric femur fracture with intramedullary Eddie Femur(Right) - Fco Horvath MD Surgeon Fco Horvath MD Waiter/Waitress None Estimated Blood Loss 50 Findings Consistent with Post-Op Diagnosis Specimens None Drains None Anesthesia Type General Complications none Disposition Accompanied Patient To Recovery: No Indications Patient is a 72-year-old female sustained a fall. X-rays demonstrate comminuted right intertrochanteric. There was concern for a murmur on her exam. Her initial surgery is a little delayed in getting her cardiogram which was relatively normal. She was thus cleared for surgery. Given the nature of the injury and displacement of the fracture recommended open reduction internal fixation with trochanteric fixation nail. Description of Procedure Risks benefits and alternatives of surgery including but not limited to infection, DVT, PE, pain, stiffness, need for surgery, damage to blood vessels, damage to nerves or risks of anesthesia, were discussed with the patient and her family and they wished to proceed. Patient was identified in the laterality was confirmed and marked. They received a preoperative antibiotic. The patient was transferred to the fracture table. The operative limb was placed in traction and the well leg was placed in a well leg murillo that was well-padded. The arms were well-padded and placed out of the way of the surgical field. I confirmed reduction of the fracture with fluoroscopy with the patient's fracture table and made adjustments to fracture table alignment is necessary to reduce the fracture appropriately. The hip was then prepped and draped in the usual standard manner with ChloraPrep. I made a longitudinal incision proximal to the greater trochanter. I sharply incised through the skin and then used Bovie electrocautery to achieve hemostasis. I incised through the fascia and then bluntly dissected down to the tip of the greater trochanter. Under fluoroscopic guidance I placed a guide pin into the greater trochanter and ensured proper placement on both AP and lateral fluoroscopy views. Once I was satisfied with the position of the guide. I advanced this distally. I then overreamed with the 17 mm proximal reamer. I then placed a Synthes trochanteric fixation nail into position. The size of the nail was intermediate nail. Then I placed the guide arm onto the nail insertion device made a stab incision more distally and then placed the drill guide for the helical blade. I adjusted the position of the nail as necessary to ensure that the guidepin was center center in the femoral head. Once I was satisfied with the position of the pin advanced it to the appropriate position of the femoral head. I then measured and then reamed the lateral cortex and then reamed down into the femoral head. I then inserted a size [address] I then locked the set screw proximally and then compressed the fracture. Then through a stab incision I placed a interlocking screw through the drill guide. I confirmed hardware placement and maintenance of reduction on AP and lateral fl uoroscopy views. Wounds were then thoroughly irrigated. The fascia was closed with interrupted #1 Vicryl suture. Subcutaneous tissues closed with interrupted 2-0 Vicryl suture and the skin with kendall. Sterile dressings applied. All needle and sponge counts were correct at the end of the procedure the patient was transferred to the PACU in stable condition without apparent complication. I attest to the content of the Intraoperative Record and any orders documented therein. Any exceptions are noted below.
[2018-08-13] MEDS ORDERED: ATROPINE SULFATE 0.1 MG/ML 10ML SYR IV PRN (14:57)
[2018-08-13] MEDS ORDERED: HYDROmorphone INJ 1 MG/ML SYRINGE IV PRN (14:57)
[2018-08-13] MEDS ORDERED: ePHEDrine sulfate 50 MG/ML AMP IV PRN (14:57)
[2018-08-13] MEDS: fentaNYL citrate 100 MCG/2 ML VIAL IV PRN ×2 (15:08→15:13)
[2018-08-13] MEDS ORDERED: METOPROLOL TARTRATE 1 MG/ML VIAL IV ONE (15:27)
--- NOTE | 2018-08-13 15:41 | Anesthesiology Progress Note ---
Date of Service August 13, 2018 Anesthesia Post Procedure Vital Signs Vital Signs: Temp Pulse Pulse Pulse Pulse Resp BP 08/13/18 14:43 37.1 C 101 H 18 08/13/18 11:23 36.8 C 74 18 08/13/18 08:35 37.2 C 77 18 08/13/18 07:11 37.3 C 81 16 08/13/18 00:18 83 08/12/18 23:15 37.1 C 82 20 08/12/18 22:20 72 19 08/12/18 22:10 80 14 08/12/18 22:00 77 15 08/12/18 21:50 85 20 08/12/18 21:40 83 21 08/12/18 21:31 78 18 199/78 H 08/12/18 21:30 75 18 08/12/18 21:20 80 11 L 08/12/18 21:10 82 16 08/12/18 21:01 77 15 176/73 H 08/12/18 21:00 77 19 08/12/18 20:50 77 22 08/12/18 20:48 76 15 159/82 H 08/12/18 20:40 80 19 08/12/18 20:30 78 18 08/12/18 20:20 81 17 08/12/18 20:10 82 17 08/12/18 20:00 79 23 08/12/18 19:50 77 13 08/12/18 19:40 77 15 08/12/18 19:30 78 13 08/12/18 19:20 79 19 08/12/18 19:10 77 11 L 08/12/18 19:00 78 15 08/12/18 18:50 78 15 08/12/18 18:40 79 17 08/12/18 18:30 77 18 08/12/18 18:25 75 19 08/12/18 18:00 76 18 08/12/18 17:57 86 27 H 08/12/18 17:20 78 13 08/12/18 17:10 82 15 08/12/18 17:00 76 17 08/12/18 16:50 78 15 08/12/18 16:47 77 17 08/12/18 16:15 37.1 C 76 20 168/74 H 08/12/18 16:12 79 19 168/74 H BP Pulse Ox 08/13/18 14:43 175/75 H 97 08/13/18 11:23 174/72 H 93 08/13/18 08:35 138/79 94 08/13/18 07:11 152/81 H 91 08/13/18 00:18 138/84 08/12/18 23:15 178/75 H 94 08/12/18 22:20 08/12/18 22:10 08/12/18 22:00 08/12/18 21:50 08/12/18 21:40 08/12/18 21:31 96 08/12/18 21:30 94 08/12/18 21:20 97 08/12/18 21:10 97 08/12/18 21:01 97 08/12/18 21:00 95 08/12/18 20:50 98 08/12/18 20:48 97 08/12/18 20:40 98 08/12/18 20:30 97 08/12/18 20:20 97 08/12/18 20:10 97 08/12/18 20:00 97 08/12/18 19:50 97 08/12/18 19:40 95 08/12/18 19:30 95 08/12/18 19:20 94 08/12/18 19:10 08/12/18 19:00 08/12/18 18:50 08/12/18 18:40 08/12/18 18:30 08/12/18 18:25 08/12/18 18:00 08/12/18 17:57 08/12/18 17:20 95 08/12/18 17:10 96 08/12/18 17:00 94 08/12/18 16:50 93 08/12/18 16:47 95 08/12/18 16:15 96 08/12/18 16:12 93 Pain Intensity Right Hip: Pain Intensity: 4 Notes Mental Status: alert / awake / arousable and participated in evaluation Patient Amnestic to Procedure: Yes Nausea / Vomiting: adequately controlled Pain: adequately controlled Airway Patency, RR, SpO2: stable & adequate BP & HR: stable & adequate Hydration State: stable & adequate Anesthetic Complications: no major complications apparent and Pt Satisfied with anesthetic care
[2018-08-13] MEDS ORDERED: METOPROLOL TARTRATE 1 MG/ML VIAL IV STA (16:08)
[2018-08-13] MEDS ORDERED: INSULIN DETEMIR FLEXPEN/FLEX TOUCH 100 UNITS/ML 3ML SC STA (16:09)
--- NOTE | 2018-08-13 16:16 | Pharmacy Report ---
Pharmacy Glycemic Short Note 2 - Date of Service August 13, 2018 - Glycemic Short BSG Results (Last 24 hours): 08/12/18 08/12/18 08/12/18 16:33 17:23 23:34 Glucose 405 H* POC Glucose 358 H* 158 H 08/13/18 08/13/18 08/13/18 05:14 05:58 11:51 Glucose 238 H POC Glucose 255 H 276 H 08/13/18 08/13/18 13:19 15:00 Glucose POC Glucose 247 H 248 H OUTPATIENT ANTIDIABETIC REGIMEN: * Levemir 30 units SC BID * Glipizide 20 mg po BID ASSESSMENT: * 72 yo F admitted with hip fracture s/p ORIF today. Patient received Levemir 30 units last night. Held this morning for 50% reduction in basal insulin for surgery/NPO status. * BSG's have not been well controlled today - persisting in mid 200's. Spoke w Dr. Paniagua r/e insulin drip to help better control BSG's in postop period. Will hold off for now. Also discussed Levemir dose - will give additional 30 units now PLAN FOR INPATIENT GLYCEMIC CONTROL: * Basal insulin * Levemir 30 units SQ x1 now. Additional at 0000 based on BSG * Bolus insulin * NovoLog q4h while NPO * Goal Range: Low 120 mg/dL - High 150 mg/dL * Correction Factor: 25 mg/dL/unit * Nutritional / Prandial insulin per carb ratio of 1 unit per 8 grams CHO consumed
[2018-08-13] MEDS ORDERED: ONDANSETRON INJ 2 MG/ML 2 ML VIAL IV STA (16:17)
[2018-08-13] MEDS ORDERED: Nursing to Pharmacy Communication ONE (16:39)
--- NOTE | 2018-08-13 17:05 | Hospitalist Progress Note ---
Date of Service August 13, 2018 Assessment & Plan (1) Closed fracture of right hip: This is a 72-year-old female with a PMH of DM II, CKD III, GERD, mood disorder and DJD of cervical spine who presents after a fall and was found to have a R hip fracture. Right Hip Fracture Procedure Operation Date: 08/13/18: s/p open reduction internal fixation of right intertrochanteric femur fracture with intramedullary Eddie Femur(Right) -PT/OT -pain control medications prn -bowel regimen to prevent narcotic induced constipation -DVT prophylaxis of aspirin 81 mg BID as per orthopedics (2) Diabetes mellitus, type II: Type 2 diabetes mellitus with hyperglycemia HbA1c 9.9 on admission with blood sugar above 400 currently pharmacy glycemic control working on diabetes management with insulin resume home dose lisinopril (3) UTI (urinary tract infection): Patient with dysuria, increased frequency of urination -urine culture with gram negative bacilli -was empirically started on cefepime, will continue for now while awaiting speciation (4) CKD (chronic kidney disease), stage III: acute kidney on chronic kidney stage III renal function improved with IV fluids continue to monitor Presence of heart murmur secondary to mild aortic sclerosis EF is 70% and no significant aortic valve stenosis on echocardiogram (5) GERD (gastroesophageal reflux disease): Continue PPI and H2 andrey (6) Stress incontinence of urine: Continue Oxybutynin PCP: [facility] Family son [phone], Subjective Patient s/p surgery. breathing on nasal cannula, awake and alert and family at bedside. patient denies acute pain. patient has right thigh in dressing with ice. no chest pain. no abdomen pain. no lightheadedness Physical Exam Constitutional: WD/WN, vitals as above Eyes: PERRL, conjunctivae normal, anicteric sclerae EOM intact bilaterally ENMT: external ear and nose normal, oropharynx normal Respiratory: normal respiratory effort, lungs clear to auscultation Cardiovascular: Rate/Rhythm: regular rate and regular rhythm Heart Sounds: + murmur Gastrointestinal (Abdomen): normal bowel sounds, soft, nontender, no hepatosplenomegaly Musculoskeletal: Head/Neck/Chest: normocephalic and head atraumatic Extremities: + lower leg abnormality (right thigh in dressing) Results & Data Vital Signs (Past 12 Hours) Vital Signs Temp Pulse Pulse Pulse Resp BP BP 08/13/18 15:46 85 16 08/13/18 15:45 86 16 143/67 H 08/13/18 15:41 84 14 135/52 L 08/13/18 15:40 83 16 08/13/18 15:36 84 14 134/76 08/13/18 15:35 83 15 08/13/18 15:31 94 H 13 08/13/18 15:30 101 H 12 145/57 H 08/13/18 15:26 100 H 14 08/13/18 15:25 100 H 16 148/66 H 08/13/18 15:21 102 H 15 08/13/18 15:20 103 H 13 114/47 L 08/13/18 15:16 103 H 12 130/58 L 08/13/18 15:15 102 H 14 08/13/18 15:11 101 H 16 152/64 H 08/13/18 15:10 102 H 14 08/13/18 15:06 104 H 16 08/13/18 15:05 103 H 15 153/70 H 08/13/18 15:01 100 H 14 08/13/18 15:00 102 H 14 156/78 H 08/13/18 14:56 100 H 16 08/13/18 14:55 101 H 14 155/63 H 08/13/18 14:51 101 H 15 08/13/18 14:50 100 H 14 167/70 H 08/13/18 14:46 104 H 16 175/75 H 08/13/18 14:45 102 H 14 08/13/18 14:44 100 H 15 08/13/18 14:43 37.1 C 104 H 101 H 15 174/102 H 175/75 H 08/13/18 11:23 36.8 C 74 18 174/72 H 08/13/18 08:35 37.2 C 77 18 138/79 08/13/18 07:11 37.3 C 81 16 152/81 H Pulse Ox 08/13/18 15:46 94 08/13/18 15:45 94 08/13/18 15:41 93 08/13/18 15:40 94 08/13/18 15:36 95 08/13/18 15:35 94 08/13/18 15:31 93 08/13/18 15:30 92 08/13/18 15:26 93 08/13/18 15:25 93 08/13/18 15:21 93 08/13/18 15:20 93 08/13/18 15:16 92 08/13/18 15:15 91 08/13/18 15:11 96 08/13/18 15:10 96 08/13/18 15:06 96 08/13/18 15:05 96 08/13/18 15:01 97 08/13/18 15:00 97 08/13/18 14:56 97 08/13/18 14:55 97 08/13/18 14:51 97 08/13/18 14:50 97 08/13/18 14:46 96 08/13/18 14:45 96 08/13/18 14:44 97 08/13/18 14:43 96 08/13/18 11:23 93 08/13/18 08:35 94 08/13/18 07:11 91 (1) Closed fracture of right hip Encounter type: initial encounter Qualified Code(s): S72.001A - Fracture of unspecified part of neck of right femur, initial encounter for closed fracture
[2018-08-13] MEDS: CEFAZOLIN 2000MG 2,000 MG/15 ML SYR IV SCH (17:33)
[2018-08-13] MEDS: SODIUM CHLORIDE 0.9% 1000ML 1,000 ML IV SCH (17:49)
[2018-08-13] MEDS: SENNA 8.6 MG TAB PO SCH (18:26)
[2018-08-13] MEDS: LISINOPRIL 5 MG TAB PO SCH (18:26)
[2018-08-13] MEDS: INSULIN ASPART 100 UNITS/ML 3 ML PEN SC SCH ×2 (18:59→22:05)
[2018-08-13] MEDS: ATORVASTATIN 10 MG TAB PO SCH (22:04)
[2018-08-13] MEDS: DOCUSATE SODIUM 100 MG CAP PO SCH (22:05)
[2018-08-13] MEDS: AMLODIPINE BESYLATE 5 MG TAB PO SCH (22:05)
[2018-08-13] MEDS: GABAPENTIN 100 MG CAP PO SCH (22:16)
[2018-08-14] MEDS: CEFAZOLIN 2000MG 2,000 MG/15 ML SYR IV SCH (00:05)
[2018-08-14] MEDS: GABAPENTIN 300 MG CAP PO SCH (01:15)
[2018-08-14] MEDS: HYDROCODONE/ACETAMINOPHEN 10/325 TAB PO PRN ×3 (04:57→20:31)
[2018-08-14] MEDS: SODIUM CHLORIDE 0.9% 1000ML 1,000 ML IV SCH (05:00)
[2018-08-14 06:21] LABS: Basophils # (auto) 0.02 K/uL (0-0.2); Basophils % (auto) 0.1 %; Eosinophils # (auto) 0.06 K/uL (0-0.5); Eosinophils % (auto) 0.4 %; Hematocrit (blood only) 33.5 % (37-47); Hemoglobin 10.9 g/dL (12.0-16.0); Immature Granulocytes # (auto) 0.07 K/uL (0.00-0.02); Immature Granulocytes % (auto) 0.4 %; Lymphocytes # (auto) 1.57 K/uL (1.2-3.4); Lymphocytes % (auto) 9.4 %; Mean Corpuscular Hgb Conc 32.5 g/dL (32-36); Mean Corpuscular Volume 93.8 fL (80-100); Mean Platelet Volume 10.7 fL (7.4-10.4); Monocytes # (auto) 2.13 K/uL (0.11-0.59); Monocytes % (auto) 12.7 %; Neutrophils # (auto) 12.86 K/uL (1.4-6.5); Platelet Count 255 K/uL (130-400); RDW Coefficient of Variation 13.3 % (11.5-14.5); RDW Standard Deviation 45.6 fL (36.4-46.3); Red Blood Count 3.57 M/uL (4.2-5.4); White Blood Count 16.71 K/uL (4.8-10.8)
[2018-08-14 06:54] LABS: BUN Creatinine Ratio 13.7 (10-20); Creatinine Clr Calc Pharmacy 34.2 ml/min; Est GFR (African American) 40.5; Potassium 4.3 mmol/L (3.5-5.1)
[2018-08-14] MEDS: OXYCODONE HCL IR 5 MG TAB (IMMEDIATE RELEASE) PO PRN ×3 (07:52→23:40)
--- NOTE | 2018-08-14 08:25 | Orthopedic Progress Note ---
Date of Service August 14, 2018 Assessment & Plan (1) Closed fracture of right hip: POD#1 right femur fracture troch nail -Pain management -DVT prophylaxis-SCDs, Aspirin 81mg BID x 30 days -PT/OT-WBAT -D/C planning likely will need rehab placement Subjective Patient is POD#1 right troch nail. She is resting in bed. Complaint of hip pain, controlled with pain medication. Pain with weight bearing. No other complaints Physical Exam Physical Exam: Patient is resting in bed comfortably. Dressing is c/d/i. Sensation and n/v status intact, toes are mobile. No calf tenderness Results & Data Vital Signs (Past 12 Hours) Vital Signs Temp Pulse Pulse Resp BP Pulse Ox 08/14/18 07:20 37.0 C 120 H 16 126/58 L 94 08/14/18 04:20 37.2 C 95 H 16 152/67 H 92 08/13/18 23:15 37.0 C 82 16 152/75 H 94 Laboratory Results Lab Results 08/12/18 08/12/18 08/12/18 Range/Units 16:33 16:33 16:33 WBC 11.57 H (4.8-10.8) K/uL RBC 4.04 L (4.2-5.4) M/uL Hgb 12.5 (12.0-16.0) g/dL Hct 38.2 (37-47) % MCV 94.6 (80-100) fL MCH 30.9 (25-34) pg MCHC 32.7 (32-36) g/dL RDW Std Deviation 45.3 (36.4-46.3) fL RDW Coeff of Robby 13.0 (11.5-14.5) % Plt Count 266 (130-400) K/uL MPV 10.9 H (7.4-10.4) fL Immature Gran % (Auto) 0.5 % Neut % (Auto) 74.3 % Lymph % (Auto) 15.0 % Warrick % (Auto) 7.3 % Eos % (Auto) 2.4 % Baso % (Auto) 0.5 % Immature Gran # (Auto) 0.06 H (0.00-0.02) K/uL Neut # (Auto) 8.59 H (1.4-6.5) K/uL Lymph # (Auto) 1.73 (1.2-3.4) K/uL Warrick # (Auto) 0.85 H (0.11-0.59) K/uL Eos # (Auto) 0.28 (0-0.5) K/uL Baso # (Auto) 0.06 (0-0.2) K/uL PT 9.8 (9.0-12.0) Seconds INR 1.0 (0.9-1.1) APTT 24.3 (21.0-31.0) Seconds PTT Ratio 0.9 Sodium 136 (136-145) mmol/L Potassium 5.3 H (3.5-5.1) mmol/L Chloride 105 (98-107) mmol/L Carbon Dioxide 21 (21-32) mmol/L Anion Gap 9.0 (3-11) BUN 26 H (7-18) mg/dl Creatinine 1.70 H (0.6-1.2) mg/dl Est Cr Clr Drug Dosing 30.3 ml/min Est GFR ( Amer) 34.6 Est GFR (Non-Af Amer) 29.8 BUN/Creatinine Ratio 15.5 (10-20) Glucose 405 H* (70-99) mg/dl POC Glucose (70-99) Estimat Average Glucose mg/dl Hemoglobin A1c (4.5-5.6) % Calcium 9.5 (8.5-10.1) mg/dl Magnesium 1.9 (1.8-2.4) mg/dl Troponin I < 0.015 (0-0.045) ng/ml Beta-Hydroxybutyric Acd (0.2-2.81) mg/dl TSH 4.750 H (0.300-4.500) uIu/ml Free T4 (0.8-1.6) ng/dl Urine Color Urine Appearance (Clear) Urine pH (4.5-7.5) Ur Specific Busby (1.000-1.030) Urine Protein (Negative) Urine Glucose (UA) (Negative) Urine Ketones (Negative) Urine Blood (Negative) Urine Nitrite (Negative) Urine Bilirubin (Negative) Urine Urobilinogen (Negative) Ur Leukocyte Esterase (Negative) Urine WBC (Auto) (0-5) /hpf Urine RBC (Auto) (0-4) /hpf U Hyaline Cast (Auto) (0-5) /lpf U Epithel Cells (Auto) (0-5) /lpf Urine Bacteria (Auto) (Negative) Blood Type Antibody Screen 08/12/18 08/12/18 08/12/18 Range/Units 16:33 16:33 16:45 WBC (4.8-10.8) K/uL RBC (4.2-5.4) M/uL Hgb (12.0-16.0) g/dL Hct (37-47) % MCV (80-100) fL MCH (25-34) pg MCHC (32-36) g/dL RDW Std Deviation (36.4-46.3) fL RDW Coeff of Robby (11.5-14.5) % Plt Count (130-400) K/uL MPV (7.4-10.4) fL Immature Gran % (Auto) % Neut % (Auto) % Lymph % (Auto) % Warrick % (Auto) % Eos % (Auto) % Baso % (Auto) % Immature Gran # (Auto) (0.00-0.02) K/uL Neut # (Auto) (1.4-6.5) K/uL Lymph # (Auto) (1.2-3.4) K/uL Warrick # (Auto) (0.11-0.59) K/uL Eos # (Auto) (0-0.5) K/uL Baso # (Auto) (0-0.2) K/uL PT (9.0-12.0) Seconds INR (0.9-1.1) APTT (21.0-31.0) Seconds PTT Ratio Sodium (136-145) mmol/L Potassium (3.5-5.1) mmol/L Chloride (98-107) mmol/L Carbon Dioxide (21-32) mmol/L Anion Gap (3-11) BUN (7-18) mg/dl Creatinine (0.6-1.2) mg/dl Est Cr Clr Drug Dosing ml/min Est GFR ( Amer) Est GFR (Non-Af Amer) BUN/Creatinine Ratio (10-20) Glucose (70-99) mg/dl POC Glucose (70-99) Estimat Average Glucose 237 mg/dl Hemoglobin A1c 9.9 H (4.5-5.6) % Calcium (8.5-10.1) mg/dl Magnesium (1.8-2.4) mg/dl Troponin I (0-0.045) ng/ml Beta-Hydroxybutyric Acd (0.2-2.81) mg/dl TSH (0.300-4.500) uIu/ml Free T4 (0.8-1.6) ng/dl Urine Color Yellow Urine Appearance Clear (Clear) Urine pH 6.5 (4.5-7.5) Ur Specific Busby 1.020 (1.000-1.030) Urine Protein Negative (Negative) Urine Glucose (UA) 3+ H (Negative) Urine Ketones Negative (Negative) Urine Blood Negative (Negative) Urine Nitrite Positive H (Negative) Urine Bilirubin Negative (Negative) Urine Urobilinogen Negative (Negative) Ur Leukocyte Esterase Negative (Negative) Urine WBC (Auto) 1-5 (0-5) /hpf Urine RBC (Auto) 0-4 (0-4) /hpf U Hyaline Cast (Auto) 1-5 (0-5) /lpf U Epithel Cells (Auto) 5-10 H (0-5) /lpf Urine Bacteria (Auto) 4+ H (Negative) Blood Type A Positive Antibody Screen NEGATIVE 08/12/18 08/12/18 08/13/18 Range/Units 17:23 23:34 05:14 WBC 12.84 H (4.8-10.8) K/uL RBC 3.83 L (4.2-5.4) M/uL Hgb 11.8 L (12.0-16.0) g/dL Hct 35.6 L (37-47) % MCV 93.0 (80-100) fL MCH 30.8 (25-34) pg MCHC 33.1 (32-36) g/dL RDW Std Deviation 45.0 (36.4-46.3) fL RDW Coeff of Robby 13.3 (11.5-14.5) % Plt Count 268 (130-400) K/uL MPV 10.6 H (7.4-10.4) fL Immature Gran % (Auto) 0.3 % Neut % (Auto) 75.2 % Lymph % (Auto) 15.5 % Warrick % (Auto) 8.3 % Eos % (Auto) 0.5 % Baso % (Auto) 0.2 % Immature Gran # (Auto) 0.04 H (0.00-0.02) K/uL Neut # (Auto) 9.67 H (1.4-6.5) K/uL Lymph # (Auto) 1.99 (1.2-3.4) K/uL Warrick # (Auto) 1.06 H (0.11-0.59) K/uL Eos # (Auto) 0.06 (0-0.5) K/uL Baso # (Auto) 0.02 (0-0.2) K/uL PT (9.0-12.0) Seconds INR (0.9-1.1) APTT (21.0-31.0) Seconds PTT Ratio Sodium (136-145) mmol/L Potassium (3.5-5.1) mmol/L Chloride (98-107) mmol/L Carbon Dioxide (21-32) mmol/L Anion Gap (3-11) BUN (7-18) mg/dl Creatinine (0.6-1.2) mg/dl Est Cr Clr Drug Dosing ml/min Est GFR ( Amer) Est GFR (Non-Af Amer) BUN/Creatinine Ratio (10-20) Glucose (70-99) mg/dl POC Glucose 358 H* 158 H (70-99) Estimat Average Glucose mg/dl Hemoglobin A1c (4.5-5.6) % Calcium (8.5-10.1) mg/dl Magnesium (1.8-2.4) mg/dl Troponin I (0-0.045) ng/ml Beta-Hydroxybutyric Acd (0.2-2.81) mg/dl TSH (0.300-4.500) uIu/ml Free T4 (0.8-1.6) ng/dl Urine Color Urine Appearance (Clear) Urine pH (4.5-7.5) Ur Specific Busby (1.000-1.030) Urine Protein (Negative) Urine Glucose (UA) (Negative) Urine Ketones (Negative) Urine Blood (Negative) Urine Nitrite (Negative) Urine Bilirubin (Negative) Urine Urobilinogen (Negative) Ur Leukocyte Esterase (Negative) Urine WBC (Auto) (0-5) /hpf Urine RBC (Auto) (0-4) /hpf U Hyaline Cast (Auto) (0-5) /lpf U Epithel Cells (Auto) (0-5) /lpf Urine Bacteria (Auto) (Negative) Blood Type Antibody Screen 08/13/18 08/13/18 08/13/18 Range/Units 05:14 05:14 05:58 WBC (4.8-10.8) K/uL RBC (4.2-5.4) M/uL Hgb (12.0-16.0) g/dL Hct (37-47) % MCV (80-100) fL MCH (25-34) pg MCHC (32-36) g/dL RDW Std Deviation (36.4-46.3) fL RDW Coeff of Robby (11.5-14.5) % Plt Count (130-400) K/uL MPV (7.4-10.4) fL Immature Gran % (Auto) % Neut % (Auto) % Lymph % (Auto) % Warrick % (Auto) % Eos % (Auto) % Baso % (Auto) % Immature Gran # (Auto) (0.00-0.02) K/uL Neut # (Auto) (1.4-6.5) K/uL Lymph # (Auto) (1.2-3.4) K/uL Warrick # (Auto) (0.11-0.59) K/uL Eos # (Auto) (0-0.5) K/uL Baso # (Auto) (0-0.2) K/uL PT (9.0-12.0) Seconds INR (0.9-1.1) APTT (21.0-31.0) Seconds PTT Ratio Sodium 137 (136-145) mmol/L Potassium 5.0 (3.5-5.1) mmol/L Chloride 109 H (98-107) mmol/L Carbon Dioxide 25 (21-32) mmol/L Anion Gap 3.0 (3-11) BUN 21 H (7-18) mg/dl Creatinine 1.47 H (0.6-1.2) mg/dl Est Cr Clr Drug Dosing 34.7 ml/min Est GFR ( Amer) 41.2 Est GFR (Non-Af Amer) 35.5 BUN/Creatinine Ratio 14.5 (10-20) Glucose 238 H (70-99) mg/dl POC Glucose 255 H (70-99) Estimat Average Glucose mg/dl Hemoglobin A1c (4.5-5.6) % Calcium 8.6 (8.5-10.1) mg/dl Magnesium (1.8-2.4) mg/dl Troponin I (0-0.045) ng/ml Beta-Hydroxybutyric Acd (0.2-2.81) mg/dl TSH (0.300-4.500) uIu/ml Free T4 1.14 (0.8-1.6) ng/dl Urine Color Urine Appearance (Clear) Urine pH (4.5-7.5) Ur Specific Busby (1.000-1.030) Urine Protein (Negative) Urine Glucose (UA) (Negative) Urine Ketones (Negative) Urine Blood (Negative) Urine Nitrite (Negative) Urine Bilirubin (Negative) Urine Urobilinogen (Negative) Ur Leukocyte Esterase (Negative) Urine WBC (Auto) (0-5) /hpf Urine RBC (Auto) (0-4) /hpf U Hyaline Cast (Auto) (0-5) /lpf U Epithel Cells (Auto) (0-5) /lpf Urine Bacteria (Auto) (Negative) Blood Type Antibody Screen 08/13/18 08/13/18 08/13/18 Range/Units 11:51 13:19 15:00 WBC (4.8-10.8) K/uL RBC (4.2-5.4) M/uL Hgb (12.0-16.0) g/dL Hct (37-47) % MCV (80-100) fL MCH (25-34) pg MCHC (32-36) g/dL RDW Std Deviation (36.4-46.3) fL RDW Coeff of Robby (11.5-14.5) % Plt Count (130-400) K/uL MPV (7.4-10.4) fL Immature Gran % (Auto) % Neut % (Auto) % Lymph % (Auto) % Warrick % (Auto) % Eos % (Auto) % Baso % (Auto) % Immature Gran # (Auto) (0.00-0.02) K/uL Neut # (Auto) (1.4-6.5) K/uL Lymph # (Auto) (1.2-3.4) K/uL Warrick # (Auto) (0.11-0.59) K/uL Eos # (Auto) (0-0.5) K/uL Baso # (Auto) (0-0.2) K/uL PT (9.0-12.0) Seconds INR (0.9-1.1) APTT (21.0-31.0) Seconds PTT Ratio Sodium (136-145) mmol/L Potassium (3.5-5.1) mmol/L Chloride (98-107) mmol/L Carbon Dioxide (21-32) mmol/L Anion Gap (3-11) BUN (7-18) mg/dl Creatinine (0.6-1.2) mg/dl Est Cr Clr Drug Dosing ml/min Est GFR ( Amer) Est GFR (Non-Af Amer) BUN/Creatinine Ratio (10-20) Glucose (70-99) mg/dl POC Glucose 276 H 247 H 248 H (70-99) Estimat Average Glucose mg/dl Hemoglobin A1c (4.5-5.6) % Calcium (8.5-10.1) mg/dl Magnesium (1.8-2.4) mg/dl Troponin I (0-0.045) ng/ml Beta-Hydroxybutyric Acd (0.2-2.81) mg/dl TSH (0.300-4.500) uIu/ml Free T4 (0.8-1.6) ng/dl Urine Color Urine Appearance (Clear) Urine pH (4.5-7.5) Ur Specific Busby (1.000-1.030) Urine Protein (Negative) Urine Glucose (UA) (Negative) Urine Ketones (Negative) Urine Blood (Negative) Urine Nitrite (Negative) Urine Bilirubin (Negative) Urine Urobilinogen (Negative) Ur Leukocyte Esterase (Negative) Urine WBC (Auto) (0-5) /hpf Urine RBC (Auto) (0-4) /hpf U Hyaline Cast (Auto) (0-5) /lpf U Epithel Cells (Auto) (0-5) /lpf Urine Bacteria (Auto) (Negative) Blood Type Antibody Screen 08/13/18 08/13/18 08/14/18 Range/Units 18:12 21:00 00:11 WBC (4.8-10.8) K/uL RBC (4.2-5.4) M/uL Hgb (12.0-16.0) g/dL Hct (37-47) % MCV (80-100) fL MCH (25-34) pg MCHC (32-36) g/dL RDW Std Deviation (36.4-46.3) fL RDW Coeff of Robby (11.5-14.5) % Plt Count (130-400) K/uL MPV (7.4-10.4) fL Immature Gran % (Auto) % Neut % (Auto) % Lymph % (Auto) % Warrick % (Auto) % Eos % (Auto) % Baso % (Auto) % Immature Gran # (Auto) (0.00-0.02) K/uL Neut # (Auto) (1.4-6.5) K/uL Lymph # (Auto) (1.2-3.4) K/uL Warrick # (Auto) (0.11-0.59) K/uL Eos # (Auto) (0-0.5) K/uL Baso # (Auto) (0-0.2) K/uL PT (9.0-12.0) Seconds INR (0.9-1.1) APTT (21.0-31.0) Seconds PTT Ratio Sodium (136-145) mmol/L Potassium (3.5-5.1) mmol/L Chloride (98-107) mmol/L Carbon Dioxide (21-32) mmol/L Anion Gap (3-11) BUN (7-18) mg/dl Creatinine (0.6-1.2) mg/dl Est Cr Clr Drug Dosing ml/min Est GFR ( Amer) Est GFR (Non-Af Amer) BUN/Creatinine Ratio (10-20) Glucose (70-99) mg/dl POC Glucose 292 H 281 H 192 H (70-99) Estimat Average Glucose mg/dl Hemoglobin A1c (4.5-5.6) % Calcium (8.5-10.1) mg/dl Magnesium (1.8-2.4) mg/dl Troponin I (0-0.045) ng/ml Beta-Hydroxybutyric Acd (0.2-2.81) mg/dl TSH (0.300-4.500) uIu/ml Free T4 (0.8-1.6) ng/dl Urine Color Urine Appearance (Clear) Urine pH (4.5-7.5) Ur Specific Busby (1.000-1.030) Urine Protein (Negative) Urine Glucose (UA) (Negative) Urine Ketones (Negative) Urine Blood (Negative) Urine Nitrite (Negative) Urine Bilirubin (Negative) Urine Urobilinogen (Negative) Ur Leukocyte Esterase (Negative) Urine WBC (Auto) (0-5) /hpf Urine RBC (Auto) (0-4) /hpf U Hyaline Cast (Auto) (0-5) /lpf U Epithel Cells (Auto) (0-5) /lpf Urine Bacteria (Auto) (Negative) Blood Type Antibody Screen 08/14/18 08/14/18 08/14/18 Range/Units 05:55 05:55 07:59 WBC 16.71 H (4.8-10.8) K/uL RBC 3.57 L (4.2-5.4) M/uL Hgb 10.9 L (12.0-16.0) g/dL Hct 33.5 L (37-47) % MCV 93.8 (80-100) fL MCH 30.5 (25-34) pg MCHC 32.5 (32-36) g/dL RDW Std Deviation 45.6 (36.4-46.3) fL RDW Coeff of Robby 13.3 (11.5-14.5) % Plt Count 255 (130-400) K/uL MPV 10.7 H (7.4-10.4) fL Immature Gran % (Auto) 0.4 % Neut % (Auto) 77.0 % Lymph % (Auto) 9.4 % Warrick % (Auto) 12.7 % Eos % (Auto) 0.4 % Baso % (Auto) 0.1 % Immature Gran # (Auto) 0.07 H (0.00-0.02) K/uL Neut # (Auto) 12.86 H (1.4-6.5) K/uL Lymph # (Auto) 1.57 (1.2-3.4) K/uL Warrick # (Auto) 2.13 H (0.11-0.59) K/uL Eos # (Auto) 0.06 (0-0.5) K/uL Baso # (Auto) 0.02 (0-0.2) K/uL PT (9.0-12.0) Seconds INR (0.9-1.1) APTT (21.0-31.0) Seconds PTT Ratio Sodium 138 (136-145) mmol/L Potassium 4.3 (3.5-5.1) mmol/L Chloride 110 H (98-107) mmol/L Carbon Dioxide 22 (21-32) mmol/L Anion Gap 6.0 (3-11) BUN 20 H (7-18) mg/dl Creatinine 1.49 H (0.6-1.2) mg/dl Est Cr Clr Drug Dosing 34.2 ml/min Est GFR ( Amer) 40.5 Est GFR (Non-Af Amer) 35.0 BUN/Creatinine Ratio 13.7 (10-20) Glucose 194 H (70-99) mg/dl POC Glucose 249 H (70-99) Estimat Average Glucose mg/dl Hemoglobin A1c (4.5-5.6) % Calcium 8.0 L (8.5-10.1) mg/dl Magnesium (1.8-2.4) mg/dl Troponin I (0-0.045) ng/ml Beta-Hydroxybutyric Acd (0.2-2.81) mg/dl TSH (0.300-4.500) uIu/ml Free T4 (0.8-1.6) ng/dl Urine Color Urine Appearance (Clear) Urine pH (4.5-7.5) Ur Specific Busby (1.000-1.030) Urine Protein (Negative) Urine Glucose (UA) (Negative) Urine Ketones (Negative) Urine Blood (Negative) Urine Nitrite (Negative) Urine Bilirubin (Negative) Urine Urobilinogen (Negative) Ur Leukocyte Esterase (Negative) Urine WBC (Auto) (0-5) /hpf Urine RBC (Auto) (0-4) /hpf U Hyaline Cast (Auto) (0-5) /lpf U Epithel Cells (Auto) (0-5) /lpf Urine Bacteria (Auto) (Negative) Blood Type Antibody Screen (1) Closed fracture of right hip Encounter type: initial encounter Qualified Code(s): S72.001A - Fracture of unspecified part of neck of right femur, initial encounter for closed fracture
[2018-08-14] MEDS ORDERED: INSULIN DETEMIR FLEXPEN/FLEX TOUCH 100 UNITS/ML 3ML SC ONE ×2 (09:00)
[2018-08-14] MEDS: INSULIN ASPART 100 UNITS/ML 3 ML PEN SC SCH ×4 (09:31→21:19)
[2018-08-14] MEDS: GABAPENTIN 100 MG CAP PO SCH ×3 (09:32→20:24)
[2018-08-14] MEDS: LISINOPRIL 5 MG TAB PO SCH (09:32)
[2018-08-14] MEDS: LORATADINE 10 MG TAB PO SCH (09:34)
[2018-08-14] MEDS: OXYBUTYNIN CHLORIDE XL 5 MG TABCR PO SCH (09:34)
[2018-08-14] MEDS: SERTRALINE HCL 50 MG TABLET PO SCH (09:34)
[2018-08-14] MEDS: SENNA 8.6 MG TAB PO SCH (09:34)
[2018-08-14] MEDS: DOCUSATE SODIUM 100 MG CAP PO SCH ×2 (09:37→20:31)
[2018-08-14] MEDS ORDERED: CEFEPIME 2,000 MG in SYRINGE 7.5 ML IV SCH (10:00)
--- NOTE | 2018-08-14 12:34 | Hospitalist Progress Note ---
Date of Service August 14, 2018 Assessment & Plan (1) Closed fracture of right hip: This is a 72-year-old female with a PMH of DM II, CKD III, GERD, mood disorder and DJD of cervical spine who presents after a fall and was found to have a R hip fracture. Right Hip Fracture Procedure Operation Date: 08/13/18: s/p open reduction internal fixation of right intertrochanteric femur fracture with intramedullary Eddie Femur(Right) -PT/OT -pain control medications prn, appears to have tachycardia when in acute pain -bowel regimen to prevent narcotic induced constipation -DVT prophylaxis of aspirin 81 mg BID as per orthopedics Presence of heart murmur secondary to mild aortic sclerosis EF is 70% and no significant aortic valve stenosis on echocardiogram (2) Diabetes mellitus, type II: Type 2 diabetes mellitus with termite helper current use of hyperglycemia HbA1c 9.9 on admission with blood sugar above 400 likely due to missed insulin doses at home blood sugars better controlled today but still above 200s pharmacy glycemic control working on diabetes management with insulin continue home dose lisinopril (3) UTI (urinary tract infection): Patient with dysuria, increased frequency of urination -urine culture with gram negative bacilli on admission -was empirically started on cefepime on 08/13/18, also received operative antibiotics of cefazolin on 08/13/18 for the hip fracture, received cefepime on 08/14/18, urine culture returned as a pansensitive E.coli, will give ceftriaxone starting on 08/15/18 (4) CKD (chronic kidney disease), stage III: acute kidney on chronic kidney stage III renal function improved with IV fluids continue to monitor (5) GERD (gastroesophageal reflux disease): Continue PPI and H2 andrey (6) Stress incontinence of urine: Continue Oxybutynin PCP: Falguni Hidalgo son [phone], Disposition: awaiting placement for physical therapy center [facility] Subjective patient had brief tachycardia today this morning but denies palpitations or chest pain. at time of my exam, patient with regular heart rate and normal in rhythm. Patient had some pain of right lower extremity for which she has some pain medication. no shortness of breath. on room air. no vomiting. is awake and alert Physical Exam Constitutional: WD/WN, vitals as above Eyes: PERRL, conjunctivae normal, anicteric sclerae EOM intact bilaterally ENMT: external ear and nose normal, oropharynx normal Respiratory: normal respiratory effort, lungs clear to auscultation Cardiovascular: Rate/Rhythm: regular rate and regular rhythm Heart Sounds: + murmur Gastrointestinal (Abdomen): normal bowel sounds, soft, nontender, no hepatosplenomegaly Musculoskeletal: Head/Neck/Chest: normocephalic and head atraumatic Extremities: + lower leg abnormality (right thigh in dressing) Psychiatric: A+Ox3, euthymic affect Results & Data Vital Signs (Past 12 Hours) Vital Signs Temp Pulse Pulse Resp BP Pulse Ox 08/14/18 11:26 37.2 C 78 16 125/67 93 08/14/18 09:30 88 114/66 08/14/18 07:20 37.0 C 120 H 16 126/58 L 94 08/14/18 04:20 37.2 C 95 H 16 152/67 H 92 (1) Closed fracture of right hip Encounter type: initial encounter Qualified Code(s): S72.001A - Fracture of unspecified part of neck of right femur, initial encounter for closed fracture
--- NOTE | 2018-08-14 13:09 | Pharmacy Report ---
Pharmacy Glycemic Short Note 2 - Date of Service August 14, 2018 - Glycemic Short BSG Results (Last 24 hours): 08/13/18 08/13/18 08/13/18 13:19 15:00 18:12 Glucose POC Glucose 247 H 248 H 292 H 08/13/18 08/14/18 08/14/18 21:00 00:11 05:55 Glucose 194 H POC Glucose 281 H 192 H 08/14/18 08/14/18 07:59 12:19 Glucose POC Glucose 249 H 187 H OUTPATIENT ANTIDIABETIC REGIMEN: * Levemir 30 units SC BID * Glipizide 20 mg po BID ASSESSMENT: 08/14/18 * BSG's finally responding after Levemir 30 + 20 + 20 units since yesterday evening. OK to decrease Levemir dosing now, ongoing BID based on BSG * OK to keep Novolog parameters the same - BSG's decreased from 249 mg/dL to 187 mg/dL from breakfast to lunch today 08/13/18 * 72 yo F admitted with hip fracture s/p ORIF today. Patient received Levemir 30 units last night. Held this morning for 50% reduction in basal insulin for surgery/NPO status. * BSG's have not been well controlled today - persisting in mid 200's. Spoke w Dr. Paniagua r/e insulin drip to help better control BSG's in postop period. Will hold off for now. Also discussed Levemir dose - will give additional 30 units now PLAN FOR INPATIENT GLYCEMIC CONTROL: * Basal insulin: Levemir BID based on BSG * 10 units for BSG less than 100 mg/dL * 20 units for BSG 100-160 mg/dL * 30 units for BSG greater than 160 mg/dL * Bolus insulin * NovoLog q4h while NPO * Goal Range: Low 120 mg/dL - High 150 mg/dL * Correction Factor: 25 mg/dL/unit * Nutritional / Prandial insulin per carb ratio of 1 unit per 8 grams CHO consumed
[2018-08-14] MEDS: AMLODIPINE BESYLATE 5 MG TAB PO SCH (20:24)
[2018-08-14] MEDS: ASPIRIN 81 MG ECTAB PO SCH (20:24)
[2018-08-14] MEDS: ATORVASTATIN 10 MG TAB PO SCH (20:24)
[2018-08-14] MEDS: INSULIN DETEMIR FLEXPEN/FLEX TOUCH 100 UNITS/ML 3ML SC SCH (21:21)
[2018-08-15] MEDS: HYDROCODONE/ACETAMINOPHEN 10/325 TAB PO PRN ×4 (05:56→23:24)
[2018-08-15 06:25] LABS: Basophils # (auto) 0.04 K/uL (0-0.2); Basophils % (auto) 0.3 %; Eosinophils # (auto) 0.32 K/uL (0-0.5); Eosinophils % (auto) 2.2 %; Hematocrit (blood only) 31.2 % (37-47); Hemoglobin 10.2 g/dL (12.0-16.0); Immature Granulocytes # (auto) 0.08 K/uL (0.00-0.02); Immature Granulocytes % (auto) 0.6 %; Lymphocytes # (auto) 2.43 K/uL (1.2-3.4); Lymphocytes % (auto) 16.7 %; Mean Corpuscular Hgb Conc 32.7 g/dL (32-36); Mean Corpuscular Volume 94.3 fL (80-100); Mean Platelet Volume 10.9 fL (7.4-10.4); Monocytes # (auto) 1.94 K/uL (0.11-0.59); Monocytes % (auto) 13.4 %; Neutrophils # (auto) 9.71 K/uL (1.4-6.5); Neutrophils % (auto) 66.8 %; Platelet Count 250 K/uL (130-400); RDW Coefficient of Variation 13.4 % (11.5-14.5); RDW Standard Deviation 46.5 fL (36.4-46.3); Red Blood Count 3.31 M/uL (4.2-5.4); White Blood Count 14.52 K/uL (4.8-10.8)
[2018-08-15 06:51] LABS: BUN Creatinine Ratio 15.1 (10-20); Calcium 8.3 mg/dl (8.5-10.1); Creatinine Clr Calc Pharmacy 30.5 ml/min; Est GFR (African American) 35.3; Est GFR (Non-African American) 30.5; Magnesium 2.1 mg/dl (1.8-2.4); Potassium 4.2 mmol/L (3.5-5.1)
--- NOTE | 2018-08-15 07:14 | Orthopedic Progress Note ---
Date of Service August 15, 2018 Assessment & Plan (1) Closed fracture of right hip: POD#2 right femur fracture troch nail -Pain management -DVT prophylaxis-SCDs, Aspirin 81mg BID x 30 days -PT/OT-WBAT -D/C planning likely will need rehab placement Subjective Patient is POD#2 right troch nail. She is resting in bed. Complaint of hip pain, controlled with pain medication and improved from yesterday. Pain with weight bearing. No other complaints. Denies chest pain, sob, n/v/d, dizziness Review of Systems Review of Systems: All systems reviewed & are unremarkable except as noted in HPI & below Physical Exam Physical Exam: Wn/WD, no acute distress. Dressings are c/d/i. No calf tenderness. Toes are mobile. N/V status and sensation are intact Results & Data Vital Signs (Past 12 Hours) Vital Signs Temp Pulse Resp BP Pulse Ox 08/14/18 23:13 37.0 C 75 16 111/66 90 08/14/18 20:26 116/46 L (1) Closed fracture of right hip Encounter type: initial encounter Qualified Code(s): S72.001A - Fracture of unspecified part of neck of right femur, initial encounter for closed fracture
[2018-08-15] MEDS: DOCUSATE SODIUM 100 MG CAP PO SCH ×2 (09:22→21:29)
[2018-08-15] MEDS: ASPIRIN 81 MG ECTAB PO SCH ×2 (09:23→21:29)
[2018-08-15] MEDS: SERTRALINE HCL 50 MG TABLET PO SCH (09:23)
[2018-08-15] MEDS: LISINOPRIL 5 MG TAB PO SCH (09:23)
[2018-08-15] MEDS: GABAPENTIN 100 MG CAP PO SCH ×3 (09:23→21:29)
[2018-08-15] MEDS: SENNA 8.6 MG TAB PO SCH (09:23)
[2018-08-15] MEDS: LORATADINE 10 MG TAB PO SCH (09:23)
[2018-08-15] MEDS: cefTRIAXone SODIUM 1,000 MG in DEXTROSE 5% 50 ML IV SCH (09:24)
[2018-08-15] MEDS: OXYBUTYNIN CHLORIDE XL 5 MG TABCR PO SCH (09:24)
[2018-08-15] MEDS: INSULIN ASPART 100 UNITS/ML 3 ML PEN SC SCH ×4 (09:27→21:34)
[2018-08-15] MEDS: INSULIN DETEMIR FLEXPEN/FLEX TOUCH 100 UNITS/ML 3ML SC SCH ×2 (09:27→21:35)
[2018-08-15] MEDS: OXYCODONE HCL IR 5 MG TAB (IMMEDIATE RELEASE) PO PRN ×3 (10:47→20:32)
[2018-08-15] MEDS ORDERED: SODIUM CHLORIDE 0.9% 1000ML 250 ML IV ONE (10:57)
--- NOTE | 2018-08-15 10:59 | Hospitalist Progress Note ---
Date of Service August 15, 2018 Assessment & Plan (1) Closed fracture of right hip: This is a 72-year-old female with a PMH of DM II, CKD III, GERD, mood disorder and DJD of cervical spine who presents after a fall and was found to have a R hip fracture. Right Hip Fracture Procedure Operation Date: 08/13/18: s/p open reduction internal fixation of right intertrochanteric femur fracture with intramedullary Eddie Femur(Right) -PT/OT -pain control medications prn, appears to have tachycardia when in acute pain, pain controlled -bowel regimen to prevent narcotic induced constipation -DVT prophylaxis of aspirin 81 mg BID as per orthopedics Presence of heart murmur secondary to mild aortic sclerosis EF is 70% and no significant aortic valve stenosis on echocardiogram (2) Diabetes mellitus, type II: Type 2 diabetes mellitus with long-term current use of hyperglycemia HbA1c 9.9 on admission with blood sugar above 400 likely due to missed insulin doses at home recent PLAN FOR INPATIENT GLYCEMIC CONTROL as per pharmacy glycemic control 08/14/18: Basal insulin: Levemir BID based on BSG 10 units for BSG less than 100 mg/dL 20 units for BSG 100-160 mg/dL 30 units for BSG greater than 160 mg/dL Bolus insulin NovoLog q4h while NPO Goal Range: Low 120 mg/dL - High 150 mg/dL Correction Factor: 25 mg/dL/unit Nutritional / Prandial insulin per carb ratio of 1 unit per 8 grams CHO consumed -blood sugars better controlled today but still and under 200s -continue home dose lisinopril (3) UTI (urinary tract infection): Patient with dysuria, increased frequency of urination -urine culture with gram negative bacilli on admission -was empirically started on cefepime on 08/13/18, also received operative antibiotics of cefazolin on 08/13/18 for the hip fracture, received cefepime on 08/14/18, urine culture returned as a pansensitive E.coli, will give ceftriaxone starting on 08/15/18 -08/15/18: mild increase in creatinine from 1.49 to 1.67 give small bolus of IV fluids 250 cc, continue urinary antibiotics will do trial of void by rubio removal (4) CKD (chronic kidney disease), stage III: acute kidney injury on chronic kidney disease stage III 08/15/18: mild increase in creatinine from 1.49 to 1.67 give small bolus of IV fluids 250 cc, continue urinary antibiotics will do trial of void by rubio removal (5) GERD (gastroesophageal reflux disease): Continue PPI and H2 andrey (6) Stress incontinence of urine: Continue Oxybutynin PCP: Falguni Hidalgo son [phone], Disposition: awaiting placement for physical therapy center [facility] Subjective The subjective that states post-op Day 2 is computer error of EMR system: Subjective for 08/15/18. Patient is postop 08/13/18: s/p open reduction internal fixation of right intertrochanteric femur fracture with intramedullary Eddie Femur(Right). Pain is controlled. resting in bed. no acute hip pain. attempt to have patient ambulate to go use commode. rubio to be discontinued for trial of void. denies chest pain or shortness of breath. no vomiting. no diarrhea. no dizziness Patient is POD#2 right troch nail. She is resting in bed. Complaint of hip pain, controlled with pain medication and improved from yesterday. Pain with weight bearing. No other complaints. Denies chest pain, sob, n/v/d, dizziness Physical Exam Constitutional: WD/WN, vitals as above Eyes: PERRL, conjunctivae normal, anicteric sclerae EOM intact bilaterally ENMT: external ear and nose normal, oropharynx normal Respiratory: normal respiratory effort, lungs clear to auscultation Cardiovascular: Rate/Rhythm: regular rate and regular rhythm Heart Sounds: + murmur Gastrointestinal (Abdomen): normal bowel sounds, soft, nontender, no hepatospl enomegaly Musculoskeletal: Head/Neck/Chest: normocephalic and head atraumatic Extremities: + lower leg abnormality (right thigh in dressing) Psychiatric: A+Ox3, euthymic affect Results & Data Vital Signs (Past 12 Hours) Vital Signs Temp Pulse Pulse Resp BP Pulse Ox 08/15/18 10:41 37.1 C 08/15/18 07:54 37.6 C H 87 10 L 126/66 93 08/14/18 23:13 37.0 C 75 16 111/66 90 (1) Closed fracture of right hip Encounter type: initial encounter Qualified Code(s): S72.001A - Fracture of unspecified part of neck of right femur, initial encounter for closed fracture
[2018-08-15] MEDS: POLYETHYLENE (MIRALAX) 17 GM PACK PO SCH ×2 (13:43→18:05)
[2018-08-15] MEDS: ATORVASTATIN 10 MG TAB PO SCH (21:28)
[2018-08-15] MEDS: AMLODIPINE BESYLATE 5 MG TAB PO SCH (21:29)
[2018-08-15 23:21] VITALS: TEMP 98.4; O2SAT 91
[2018-08-16] MEDS: INSULIN ASPART 100 UNITS/ML 3 ML PEN SC SCH ×4 (00:14→12:39)
[2018-08-16] MEDS: POLYETHYLENE (MIRALAX) 17 GM PACK PO SCH ×3 (00:36→12:39)
[2018-08-16] MEDS: OXYCODONE HCL IR 5 MG TAB (IMMEDIATE RELEASE) PO PRN (04:12)
[2018-08-16 06:44] LABS: Basophils # (auto) 0.03 K/uL (0-0.2); Basophils % (auto) 0.2 %; Eosinophils # (auto) 0.42 K/uL (0-0.5); Eosinophils % (auto) 3.1 %; Hematocrit (blood only) 29.7 % (37-47); Hemoglobin 9.8 g/dL (12.0-16.0); Immature Granulocytes # (auto) 0.06 K/uL (0.00-0.02); Immature Granulocytes % (auto) 0.4 %; Lymphocytes # (auto) 2.37 K/uL (1.2-3.4); Lymphocytes % (auto) 17.7 %; Mean Corpuscular Volume 94.3 fL (80-100); Mean Platelet Volume 10.6 fL (7.4-10.4); Monocytes # (auto) 1.96 K/uL (0.11-0.59); Monocytes % (auto) 14.6 %; Neutrophils # (auto) 8.58 K/uL (1.4-6.5); Platelet Count 281 K/uL (130-400); RDW Coefficient of Variation 13.3 % (11.5-14.5); RDW Standard Deviation 46.1 fL (36.4-46.3); Red Blood Count 3.15 M/uL (4.2-5.4); White Blood Count 13.42 K/uL (4.8-10.8)
[2018-08-16 07:17] LABS: BUN Creatinine Ratio 20.1 (10-20); Calcium 8.2 mg/dl (8.5-10.1); Creatinine Clr Calc Pharmacy 29.6 ml/min; Est GFR (African American) 34.1; Est GFR (Non-African American) 29.4; Potassium 4.1 mmol/L (3.5-5.1)
[2018-08-16 07:35] VITALS: BP 147/73; PULSE 99
[2018-08-16] MEDS ORDERED: SODIUM CHLORIDE 0.9% 250 ML IV ONE (08:06)
[2018-08-16] MEDS: GABAPENTIN 100 MG CAP PO SCH (09:16)
[2018-08-16] MEDS: SENNA 8.6 MG TAB PO SCH (09:16)
[2018-08-16] MEDS: OXYBUTYNIN CHLORIDE XL 5 MG TABCR PO SCH (09:16)
[2018-08-16] MEDS: LISINOPRIL 5 MG TAB PO SCH (09:16)
[2018-08-16] MEDS: ASPIRIN 81 MG ECTAB PO SCH (09:16)
[2018-08-16] MEDS: DOCUSATE SODIUM 100 MG CAP PO SCH (09:17)
[2018-08-16] MEDS: LORATADINE 10 MG TAB PO SCH (09:17)
[2018-08-16] MEDS: SERTRALINE HCL 50 MG TABLET PO SCH (09:17)
[2018-08-16] MEDS: INSULIN DETEMIR FLEXPEN/FLEX TOUCH 100 UNITS/ML 3ML SC SCH (09:21)
[2018-08-16] MEDS: cefTRIAXone SODIUM 1,000 MG in DEXTROSE 5% 50 ML IV SCH (09:26)
--- NOTE | 2018-08-16 12:53 | Hospitalist Progress Note ---
Date of Service August 16, 2018 Assessment & Plan (1) Closed fracture of right hip: This is a 72-year-old female with a PMH of DM II, CKD III, GERD, mood disorder and DJD of cervical spine who presents after a fall and was found to have a R hip fracture. Right Hip Fracture Procedure Operation Date: 08/13/18: s/p open reduction internal fixation of right intertrochanteric femur fracture with intramedullary Eddie Femur(Right) -patient was treated with post-op monitoring, with pain medications during hospital stay and physical and occupational therapy while in the hospital -[place] PDMP was checked and patient has hydrocodone-acetaminophen for 22 day supply and last filled on 07/07/18 Because patient has hip fracture repaired and being discharge to [facility] for physical rehabilitation Patient will have short term narcotic pain medication prescriptions made by hospitalist for 7 day supply as hydrocodone-acetaminophen 1 tablet every 6 hours as needed for pain Patient will need to be on aspirin 81 mg twice a day for 30 days as per orthopedics to prevent blood clots Patient should follow up with [facility] instructions and call [facility] at [phone] to schedule a follow up appointment 10-14 days from the date of surgery date with Dr. Horvath. Presence of heart murmur secondary to mild aortic sclerosis EF is 70% and no significant aortic valve stenosis on echocardiogram (2) Diabetes mellitus, type II: Type 2 diabetes mellitus with termite helper current use of insulin with hyperglycemia HbA1c 9.9 -on admission with blood sugar above 400 likely due to missed insulin doses at home -during hospital stay, blood sugar was better controlled with glucose less than 200 using Levemir and sliding scale aspart -Patient will need to follow up with primary care doctor to follow up diabetes mellitus management and other health issues; blood sugars have been controlled by inpatient pharmacy control, patient may resume home dose glipizide of 20 mg BID and Levemir 30 units BID (3) UTI (urinary tract infection): Patient with dysuria, increased frequency of urination -urine culture with gram negative bacilli on admission -was empirically started on cefepime on 08/13/18, also received operative antibiotics of cefazolin on 08/13/18 for the hip fracture, received cefepime on 08/14/18, urine culture returned as a pansensitive E.coli, was given ceftriaxone starting on 08/15/18 completed 3 day course of antibiotics for UTI (4) CKD (chronic kidney disease), stage III: acute kidney injury on chronic kidney disease stage III 08/15/18: mild increase in creatinine from 1.49 to 1.67 was given IV fluids 250 cc 08/16/18:creatinine stable at 1.72. additional IV fluids 250 cc given expect creatinine to be stable or improve with oral hydration (5) GERD (gastroesophageal reflux disease): Continue PPI and H2 andrey (6) Stress incontinence of urine: Continue Oxybutynin PCP: Falguni Hidalgo son [phone], Discharge Diagnosis Closed fracture of right hip, Type 2 diabetes mellitus with termite helper current use of insulin with hyperglycemia, urinary tract infection, acute kidney injury on chronic kidney disease stage III Discharge Instructions Patient will need to follow up with primary care doctor to follow up diabetes mellitus management and other health issues; blood sugars have been controlled by inpatient pharmacy control, patient may resume home dose glipizide of 20 mg BID and Levemir 30 units BID [place] PDMP was checked and patient has hydrocodone-acetaminophen for 22 d ay supply and last filled on 07/07/18 Because patient has hip fracture repaired and being discharge to [facility] for physical rehabilitation Patient will have short term narcotic pain medication prescriptions made by hospitalist for 7 day supply as hydrocodone-acetaminophen 1 tablet every 6 hours as needed for pain Patient will need to be on aspirin 81 mg twice a day for 30 days as per orthopedics to prevent blood clots Patient should follow up with [facility] and follow these instructions as below [facility] DISCHARGE INSTRUCTIONS: HIP FRACTURE SELF CARE INSTRUCTIONS: A. You are to ambulate with a walker or crutches for approximately 6 weeks. B. You are WEIGHT BEARING TOLERATE on your operative lower extremity for at least 6 weeks. C. Wear low heeled shoes with non-slip soles D. Be sure that your floors are free of things that could trip you throw rugs, electrical cords, and small objects. Avoid wet and waxed floors, especially with crutches/walker/cane. E. Try to walk several times a day with rest periods between. F. You may shower 48 hours after surgery and get the incision area wet, but DO NOT soak or submerge incision area in water. (No baths, swimming pools, hot tubs) G. You may have a large, band-aid like dressing over your incision (Aquacel). This will remain on your incision for 7 days, and then can be removed. You CAN shower with this on. If incision is leaking through the dressing, please call the office . H. Do NOT apply soap or any ointment/lotions directly over incision. I. You may use ice as needed to operative site. SPECIAL CARE INSTRUCTIONS: VERY IMPORTANT TO READ AND REVIEW A. You may be at risk for phlebitis or blood clots. a. Wear surgical stockings (BOUCHRA hose) for 2 weeks after surgery to improve circulation and reduce swelling. b. Take [id number] twice daily for 4 weeks or as directed. This is your blood thinner. c. If you are on Coumadin- you will have daily/weekly blood work to monitor your levels. This will be done by either your family physician/furnace puncher (if you are on Coumadin chronically) versus your orthopedic surgeon. Expect a phone call the day of or the day after your blood work is drawn to adjust your dose accordingly. B. There are a few signs you need to watch for after you are home. Call [facility] at [phone] if you experience any of the following: a. If you have a temperature of 101 degrees or higher. b. Sudden increase in pain in your hip not relieved by rest or pain medication. c. Any fluid or drainage from the incision; redness of the incision. d. Shortness of breath or chest pain. B. Please call [facility] at [phone] if you have any questions or concerns about your operation or recovery. C. Call your physician if: a. Temperature is greater than 101 degrees (F). b. Pain is not relieved by prescribed pain med ications. c. Increase drainage or redness from incision. d. Unanswered questions or concerns. D. Pain Medication: a. You will be prescribed pain medication upon discharge that should last till your first post-operative appointment. b. If you experience nausea and/or skin rash, discontinue this medication and contact our office for an alternative medication. c. Caution- narcotic pain medication can cause constipation. FOLLOW UP VISIT: Please call [facility] at [phone] to schedule a follow up appointment 10-14 days from the date of your surgery date with Dr. Horvath. Subjective Patient doing well. not in distress. breathing on room air, able to urinate without a rubio. no abdomen pain, no vomiting, no chest pain, no vomiting, leg discomforts appears to be controlled Physical Exam Constitutional: WD/WN, vitals as above Eyes: PERRL, conjunctivae normal, anicteric sclerae EOM intact bilaterally ENMT: external ear and nose normal, oropharynx normal Respiratory: normal respiratory effort, lungs clear to auscultation Cardiovascular: Rate/Rhythm: regular rate and regular rhythm Heart Sounds: + murmur Gastrointestinal (Abdomen): normal bowel sounds, soft, nontender, no hepatosplenomegaly Musculoskeletal: Head/Neck/Chest: normocephalic and head atraumatic Extremities: + lower leg abnormality (right thigh in dressing) Psychiatric: A+Ox3, euthymic affect Results & Data Vital Signs (Past 12 Hours) Vital Signs Pulse Resp BP Pulse Ox 08/16/18 07:34 99 H 18 147/73 H 91 (1) Closed fracture of right hip Encounter type: initial encounter Qualified Code(s): S72.001A - Fracture of unspecified part of neck of right femur, initial encounter for closed fracture
--- NOTE | 2018-08-16 13:05 | Discharge Summary ---
Date of Service August 16, 2018 Admission HPI Per Admitting Provider This is a 72-year-old female with a PMH of DM II, CKD III, GERD, mood disorder and DJD of cervical spine who presents after a fall this afternoon. Patient is visiting son in [place] was getting a drink of water at the refrigerator when she fell backwards, landing on her back. Patient hit her head, but no confusion or LOC. Was brought to the ED and found to have a comminuted and displaced intertrochanteric fracture of the right hip. Denies any numbness or paresthesias in distal right leg. Has family at bedside. Has undergone multiple surgeries in the past without issue. CT head without acute intracra nial abnormalities chest x-ray. Chest x-ray without acute findings. EKG with normal sinus rhythm. Denies any fever, chills, lightheadedness, headache, chest pain, palpitations, shortness of breath, nausea, vomiting, abdominal pain, diarrhea or constipation. Is endorsing dysuria and frequent urination and has had UTIs in the past. Found to have BSG 405. Did not take morning Levemir dose. Admission Exam Per Admitting Provider General Appearance: WD/WN, no apparent distress, obese, anxious Head: normocephalic, atraumatic Eyes: normal inspection, PERRL, EOMI ENT: hearing grossly normal, pharynx normal (moist mucous membranes) Neck: supple, no JVD, no adenopathy Respiratory/Chest: lungs clear to auscultation. No wheezes, rales or rhonci. No respiratory distress or accessory muscle use Cardiovascular: regular rate, rhythm, no murmur, normal peripheral pulses Abdomen/GI: normal bowel sounds, soft, non-tender to palpation Extremities/Musculoskelatal: R hip very tender to palpation. Distal R leg with 5/5 strength and PT/DP pulses 2+ Neurologic/Psych: alert, normal mood/affect, oriented x 3 Skin: normal color, warm/dry Principal Diagnosis Closed fracture of right hip, Type 2 diabetes mellitus with medical terminologist current use of insulin with hyperglycemia, urinary tract infection, acute kidney injury on chronic kidney disease stage III Discharge Exam Constitutional WD/WN, vitals as above Eyes PERRL, conjunctivae normal, anicteric sclerae EOM intact bilaterally ENMT external ear and nose normal, oropharynx normal Respiratory normal respiratory effort, lungs clear to auscultation Cardiovascular Rate/Rhythm: regular rate and regular rhythm Heart Sounds: + murmur Gastrointestinal (Abdomen) normal bowel sounds, soft, nontender, no hepatosplenomegaly Musculoskeletal Head/Neck/Chest: normocephalic and head atraumatic Extremities: + lower leg abnormality (right thigh in dressing) Psychiatric A+Ox3, euthymic affect Discharge Data Allergies Allergy/AdvReac Type Severity Reaction Status Date / Time codeine AdvReac Mild nausea Verified 08/12/18 17:33 Consultations 08/12/18 19:16 ED Decision to Admit Stat 08/12/18 22:55 Consult Case Management - Discharge Planning Routine Consult Case Management - Discharge Planning Routine Consult Orthopedic Surgery Routine 08/13/18 14:41 Consult Case Management - Discharge Planning Routine Procedures Performed Operation Date: 08/13/18 07:30 Actual Procedures p Intramedullary Eddie Femur(Right) - Fco Horvath MD Ordered Studies 08/12/18 16:20 CT cervical spine wo con Stat CT head/brain wo con Stat 08/13/18 12:15 FL fluoroscopy <1hr Routine FL hip RT 2-3V Routine Hospital Course (1) Closed fracture of right hip: This is a 72-year-old female with a PMH of DM II, CKD III, GERD, mood disorder and DJD of cervical spine who presents after a fall and was found to have a R hip fracture. Right Hip Fracture Procedure Operation Date: 08/13/18: s/p open reduction internal fixation of right intertrochanteric femur fracture with intramedullary Eddie Femur(Right) -patient was treated with post-op monitoring, with pain medications during hospital stay and physical and occupational therapy while in the hospital -[place] PDMP was checked and patient has hydrocodone-acetaminophen for 22 day supply and last filled on 07/07/18 Because patient has hip fracture repaired and being discharge to [facility] for physical rehabilitation Patient will have short term narcotic pain medication prescriptions made by hospitalist for 7 day supply as hydrocodone-acetaminophen 1 tablet every 6 hours as needed for pain Patient will need to be on aspirin 81 mg twice a day for 30 days as per orthopedics to prevent blood clots Patient should follow up with [facility] instructions and call [facility] [place] at [phone] to schedule a follow up appointment 10-14 days from the date of surgery date with Dr. Horvath. Presence of heart murmur secondary to mild aortic sclerosis EF is 70% and no significant aortic valve stenosis on echocardiogram (2) Diabetes mellitus, type II: Type 2 diabetes mellitus with medical terminologist current use of insulin with hyperglycemia HbA1c 9.9 -on admission with blood sugar above 400 likely due to missed insulin doses at home -during hospital stay, blood sugar was better controlled with glucose less than 200 using Levemir and sliding scale aspart -Patient will need to follow up with primary care doctor to follow up diabetes mellitus management and other health issues; blood sugars have been controlled by inpatient pharmacy control, patient may resume home dose glipizide of 20 mg BID and Levemir 30 units BID (3) UTI (urinary tract infection): Patient with dysuria, increased frequency of urination -urine culture with gram negative bacilli on admission -was empirically started on cefepime on 08/13/18, also received operative antibiotics of cefazolin on 08/13/18 for the hip fracture, received cefepime on 08/14/18, urine culture returned as a pansensitive E.coli, was given ceftriaxone starting on 08/15/18 completed 3 day course of antibiotics for UTI (4) CKD (chronic kidney disease), stage III: acute kidney injury on chronic kidney disease stage III 08/15/18: mild increase in creatinine from 1.49 to 1.67 was given IV fluids 250 cc 08/16/18:creatinine stable at 1.72. additional IV fluids 250 cc given expect creatinine to be stable or improve with oral hydration (5) GERD (gastroesophageal reflux disease): Continue PPI and H2 andrey (6) Stress incontinence of urine: Continue Oxybutynin PCP: Falguni Hidalgo son [phone], Discharge Diagnosis Closed fracture of right hip, Type 2 diabetes mellitus with fci current use of insulin with hyperglycemia, urinary tract infection, acute kidney injury on chronic kidney disease stage III Discharge Instructions Patient will need to follow up with primary care doctor to follow up diabetes mellitus management and other health issues; blood sugars have been controlled by inpatient pharmacy control, patient may resume home dose glipizide of 20 mg BID and Levemir 30 units BID [place] PDMP was checked and patient has hydrocodone-acetaminophen for 22 day supply and last filled on 07/07/18 Because patient has hip fracture repaired and being discharge to [facility] for physical rehabilitation Patient will have short term narcotic pain medication prescriptions made by jonathon for 7 day supply as hydrocodone-acetaminophen 1 tablet every 6 hours as needed for pain Patient will need to be on aspirin 81 mg twice a day for 30 days as per orthopedics to prevent blood clots Patient should follow up with [facility] and follow these instructions as below [facility] DISCHARGE INSTRUCTIONS: HIP FRACTURE SELF CARE INSTRUCTIONS: A. You are to ambulate with a walker or crutches for approximately 6 weeks. B. You are WEIGHT BEARING TOLERATE on your operative lower extremity for at least 6 weeks. C. Wear low heeled shoes with non-slip soles D. Be sure that your floors are free of things that could trip you throw rugs, electrical cords, and small objects. Avoid wet and waxed floors, especially with crutches/walker/cane. E. Try to walk several times a day with rest periods between. F. You may shower 48 hours after surgery and get the incision area wet, but DO NOT soak or submerge incision area in water. (No baths, swimming pools, hot tubs) G. You may have a large, band-aid like dressing over your incision (Aquacel). This will remain on your incision for 7 days, and then can be removed. You CAN shower with this on. If incision is leaking through the dressing, please call the office . H. Do NOT apply soap or any ointment/lotions directly over incision. I. You may use ice as needed to operative site. SPECIAL CARE INSTRUCTIONS: VERY IMPORTANT TO READ AND REVIEW A. You may be at risk for phlebitis or blood clots. a. Wear surgical stockings (BOUCHRA hose) for 2 weeks after surgery to improve circulation and reduce swelling. b. Take [id number] twice daily for 4 weeks or as directed. This is your blood thinner. c. If you are on Coumadin- you will have daily/weekly blood work to monitor your levels. This will be done by either your family physician/non ferrous material handler (if you are on Coumadin chronically) versus your orthopedic surgeon. Expect a phone call the day of or the day after your blood work is drawn to adjust your dose accordingly. B. There are a few signs you need to watch for after you are home. Call [facility] at [phone] if you experience any of the following: a. If you have a temperature of 101 degrees or higher. b. Sudden increase in pain in your hip not relieved by rest or pain medication. c. Any fluid or drainage from the incision; redness of the incision. d. Shortness of breath or chest pain. B. Please call [facility] at [phone] if you have any questions or concerns about your operation or recovery. C. Call your physician if: a. Temperature is greater than 101 degrees (F). b. Pain is not relieved by prescribed pain medications. c. Increase drainage or redness from incision. d. Unanswered questions or concerns. D. Pain Medication: a. You will be prescribed pain medication upon discharge that should last till your first post-operative appointment. b. If you experience nausea and/or skin rash, discontinue this medication and contact our office for an alternative medication. c. Caution- narcotic pain medication can cause constipation. FOLLOW UP VISIT: Please call [facility] at [phone] to schedule a follow up appointment 10-14 days from the date of your surgery date with Dr. Horvath. Total Time Total Time Spent Total Time Spent (In Minutes): 40 minutes Total Time Includes: Examination of the Patient, Discharge Planning, Medication Reconciliation and Communication With Other Providers Discharge Plan Discharge Items Patient Disposition: Transfer Intermediate Fac Reason For Visit: RT HIP FX Discharge Diagnosis: Closed fracture of right hip, Type 2 diabetes mellitus with medical terminologist current use of insulin with hyperglycemia, urinary tract infection, acute kidney injury on chronic kidney disease stage III Condition: Good Discharge Goals: Improve function Activity: Per 'Additional Instructions' section Non-emergency contact: Primary Care Provider and Surgeon Call non-emergency contact if: you have any medication questions Follow-up/Referrals: Steffany Montes De Oca [Primary Care Provider] - Diet: Carb Consistent or DM2 Addtl Provider Instructions: Patient will need to follow up with primary care doctor to follow up diabetes mellitus management and other health issues; blood sugars have been controlled by inpatient pharmacy control, patient may resume home dose glipizide of 20 mg BID and Levemir 30 units BID [place] PDMP was checked and patient has hydrocodone-acetaminophen for 22 day supply and last filled on 07/07/18 Because patient has hip fracture repaired and being discharge to [facility] for physical rehabilitation Patient will have short term narcotic pain medication prescriptions made by hospitalist for 7 day supply as hydrocodone-acetaminophen 1 tablet every 6 hours as needed for pain Patient will need to be on aspirin 81 mg twice a day for 30 days as per orthopedics to prevent blood clots Patient should follow up with [facility] and follow these instructions as below [facility] DISCHARGE INSTRUCTIONS: HIP FRACTURE SELF CARE INSTRUCTIONS: A. You are to ambulate with a walker or crutches for approximately 6 weeks. B. You are WEIGHT BEARING TOLERATE on your operative lower extremity for at least 6 weeks. C. Wear low heeled shoes with non-slip soles D. Be sure that your floors are free of things that could trip you throw rugs, electrical cords, and small objects. Avoid wet and waxed floors, especially with crutches/walker/cane. E. Try to walk several times a day with rest periods between. F. You may shower 48 hours after surgery and get the incision area wet, but DO NOT soak or submerge incision area in water. (No baths, swimming pools, hot tubs) G. You may have a large, band-aid like dressing over your incision (Aquacel). This will remain on your incision for 7 days, and then can be removed. You CAN shower with this on. If incision is leaking through the dressing, please call the office . H. Do NOT apply soap or any ointment/lotions directly over incision. I. You may use ice as needed to operative site. SPECIAL CARE INSTRUCTIONS: VERY IMPORTANT TO READ AND REVIEW A. You may be at risk for phlebitis or blood clots. a. Wear surgical stockings (BOUCHRA hose) for 2 weeks after surgery to improve circulation and reduce swelling. b. Take [id number] twice daily for 4 weeks or as directed. This is your blood thinner. c. If you are on Coumadin- you will have daily/weekly blood work to monitor your levels. This will be done by either your family physician/non ferrous material handler (if you are on Coumadin chronically) versus your orthopedic surgeon. Expect a phone call the day of or the day after your blood work is drawn to adjust your dose accordingly. B. There are a few signs you need to watch for after you are home. Call [facility] at [phone] if you experience any of the following: a. If you have a temperature of 101 degrees or higher. b. Sudden increase in pain in your hip not relieved by rest or pain medication. c. Any fluid or drainage from the incision; redness of the incision. d. Shortness of breath or chest pain. B. Please call [facility] at [phone] if you have any questions or concerns about your operation or recovery. C. Call your physician if: a. Temperature is greater than 101 degrees (F). b. Pain is not relieved by prescribed pain medications. c. Increase drainage or redness from incision. d. Unanswered questions or concerns. D. Pain Medication: a. You will be prescribed pain medication upon discharge that should last till your first post-operative appointment. b. If you experience nausea and/or skin rash, discontinue this medication and contact our office for an alternative medication. c. Caution- narcotic pain medication can cause constipation. FOLLOW UP VISIT: Please call [facility] at [phone] to schedule a follow up appointment 10-14 days from the date of your surgery date with Dr. Horvath. Prescriptions: New sennosides [Senokot] 8.6 mg Tablet 8.6 mg PO QAM 30 Days Qty: 30 RF: 0 docusate sodium 100 mg Capsule 100 mg PO BID 30 Days Qty: 60 RF: 0 hydrocodone-acetaminophen 10-325 mg tablet 1 tab PO Q6H PRN (Reason: pain) 7 Days Qty: 42 RF: 0 aspirin [Ecotrin Low Strength] 81 mg Tablet,Delayed Release (Dr/Ec) 81 mg PO BID 30 Days Qty: 60 RF: 0 Continued atorvastatin 10 mg Tablet 10 mg PO HS RF: 0 tizanidine 4 mg Tablet 4 mg PO Q8H PRN (Reason: Muscle Spasm) RF: 0 ranitidine HCl 300 mg Tablet 300 mg PO HS RF: 0 glipizide 10 mg Tablet 20 mg PO BID RF: 0 gabapentin 300 mg Capsule 300 mg PO TID RF: 0 omeprazole 20 mg Capsule,Delayed Release(Dr/Ec) 20 mg PO DAILY RF: 0 lisinopril 5 mg Tablet 5 mg PO DAILY RF: 0 sertraline 50 mg Tablet 50 mg PO DAILY RF: 0 loratadine 10 mg Tablet 10 mg PO DAILY RF: 0 Levemir U-100 Insulin 100 unit/mL Solution 30 unit SUBCUT BID RF: 0 oxybutynin chloride 10 mg Tablet Extended Release 24hr 10 mg PO DAILY RF: 0 Discontinued hydrocodone-acetaminophen 10-325 mg Tablet 1 tab PO Q4 MDD MAX 5 TAB/24 HOURS. PRN (Reason: Pain) RF: 0 Stand-Alone Forms: [facility] Discharge Orders: Discharge Order (Routine); Ordered 08/16/18 Ordered By: Juventino Paniagua Skilled Items Patient informed of condition?: Yes DNR: No Discharge Level of Care: Other Communicable Disease: No Discharge Prognosis: Stable Admission Data Admit Date/Time: 08/12/18 21:33 Attending Provider: Juventino Paniagua Admit Provider: Joao Villanueva Primary Care Provider: Steffany Montes De Oca Other Providers: Joao Villanueva ; Fco Horvath Service: Surgical Services Other Interventions: Discharge Summary Assessment (RN) Last Done: 08/16/18 12:30 DC Date/Time DO NOT enter until pt leaves facility: 08/16/18 13:02
== END 2018-08-16 13:02 | DRG 481 ==
LOC: ED 16:06 → 3N 21:33